=== PATIENT | female | born 1960 | race Two or more races ===

== ENCOUNTER 2016-11-21 22:49 | Emergency (ER) | payer MEDICAID ==
[2016-11-22] MEDS ORDERED: LORAZEPAM INJ 2 MG/1 ML VIAL IV ONE (00:01)
--- NOTE | 2016-11-22 00:05 | ER Document Report ---
ED General - General Chief Complaint: Palpitations Stated Complaint: PALPITATIONS Notes: Patient is a 56-year-old female who presents with complaint of popped patient's , tremors, feeling very anxious. All history is obtained using the [employer] bartender manager. Tail Board Man ID number is [id number]. Patient says that she was recent start on prednisone and lithium. She says she started prednisone because she has a history of recurrent pain goes down her left arm and left leg. This is been ongoing since 2010. She has had physical therapy and multiple different treatment regimens to try to control her pain. She says all of work. Patient also mentions that her son is now out of town. She says that in 2012 show the exact same symptoms that she had today where she started feeling her heart was racing, she felt very anxious, and she also had a possible seizure. Patient says she remembered the seizure. She says she was awake for some of it and asleep for several. She saw neurologist who initially placed on medications but then took her off the medications after one year. She says previously this episode was related to the prednisone which she was placed on at that time. She says this is the first time she's had prednisone since that episode and she started to have the same symptoms. She says that she 's been so depressed and anxious recently that she has had difficulty walking and has fallen. She says it's made her feel weak. She denies any recent fevers or infections. No vomiting. Her only other medical allergies are aspirin and penicillin. No other complaints at this time. TRAVEL OUTSIDE OF THE [place] IN LAST 30 DAYS: No - Related Data Allergies/Adverse Reactions: lactose Adverse Reaction (Intermediate, Verified 09/29/12 12:00) aspirin [Aspirin] Adverse Reaction (Verified 09/29/12 12:00) Penicillins Adverse Reaction (Verified 09/29/12 12:00) Past Medical History - Social History Smoking Status: Never Smoker Frequency of alcohol use: None Drug Abuse: None Family History: Reviewed & Not Pertinent Patient has suicidal ideation: No Patient has homicidal ideation: No - Past Medical History Cardiac Medical History: Reports: Hx Hypertension Pulmonary Medical History: Reports: Hx Asthma, Hx Bronchitis Denies: Hx Tuberculosis Neurological Medical History: Reports: Hx Seizures Renal/ Medical History: Denies: Hx Peritoneal Dialysis GI Medical History: Reports: Hx Gastroesophageal Reflux Disease Musculoskeltal Medical History: Reports Hx Arthritis Psychiatric Medical History: Reports: Hx Bipolar Disorder Denies: Hx Depression, Hx Post Traumatic Stress Disorder, Hx Schizophrenia Past Surgical History: Reports: Hx Hysterectomy, Hx Inguinal Hernia. Denies: Hx Pacemaker - Immunizations Hx Diphtheria, Pertussis, Tetanus Vaccination: Yes - unknown Hx Pneumococcal Vaccination: 09/17/12 Review of Systems - Review of Systems Notes: My Normal Review Basic REVIEW OF SYSTEMS: CONSTITUTIONAL : Denies fever, chills, or sweats. Denies recent illness. Cardiac: Palpitations EENT: Denies eye, ear, throat, or mouth pain or symptoms. Denies nasal or sinus congestion. RESPIRATORY: Denies cough, cold, or chest congestion. Denies shortness of breath, difficulty breathing, or wheezing. GASTROINTESTINAL: Denies abdominal pain. Denies nausea, vomiting, or diarrhea. Denies constipation. Last BM: MUSCULOSKELETAL: Denies neck or back pain or joint pain or swelling. SKIN: Denies rash or skin lesions. NEUROLOGICAL: Denies altered mental status or loss of consciousness. Denies headache. Denies weakness or paralysis or loss of use of either side. Denies problems with gait or speech. Denies sensory or motor loss. PSYCHIATRIC: Anxiety. Bipolar depression. ALL OTHER SYSTEMS REVIEWED AND NEGATIVE. Physical Exam - Vital signs Vitals: Temp Pulse Resp BP Pulse Ox 97.5 F 114 H 18 173/84 H 99 11/21/16 22:55 11/21/16 22:55 11/21/16 22:55 11/21/16 22:55 11/21/16 22:55 - Notes Notes: General Appearance: Well nourished, alert, cooperative, no acute distress, no obvious discomfort. Very anxious on exam. Vitals: reviewed, See vital signs table. Head: no swelling or tenderness to the head Eyes: PERRL, EOMI, Conjuctiva clear Mouth: No decreasd moisture Throat: No tonsillar inflammation, No airway obstruction, No lymphadenopathy Neck: Supple, no neck tenderness, No thyromegaly Lungs: No wheezing, No rales, No rhonci, No accessory muscle use, good air exchange bilaterally. Heart: Tachycardic rate, Regular rythm, No murmur, no rub Abdomen: Normal BS, soft, No rigidity, No abdominal tenderness, No guarding, no rebound, no abdominal masses, no organomegaly Extremities: strength 5/5 in all extremities, good pulses in all extremities, no swelling or tenderness in the extremities, no edema. Good strength in both lower extremities with plantar and dorsiflexion. Patient is equal and normal director script strength in bilateral hands. Good distal sensation. Patient is able to lift her legs off the bed and rotated around in the bed without any difficulty. Skin: warm, dry, appropriate color, no rash Neuro: speech clear, oriented x 3, normal affect, responds appropriately to questions. Distal sensation intact. Cranial nerves II through XII are intact. Course - Re-evaluation Re-evalutation: 11/22/16 02:38 On reevaluation the patient is resting comfortably. I was able to wake her up and she looks well. She still sleepy from the Ativan. I will let her rest more. Her heart rate is in the 80s. She is no longer anxious appearing. - Vital Signs Vital signs: Temp Pulse Resp BP Pulse Ox 97.5 F 114 H 14 128/72 H 95 11/21/16 22:55 11/21/16 22:55 11/22/16 06:01 11/22/16 06:01 11/22/16 06:01 - Laboratory Result Diagrams: 11/22/16 00:11 11/22/16 00:11 Laboratory results interpreted by me: 11/22/16 11/22/16 11/22/16 00:11 00:11 00:11 RDW 14.4 H Plt Count 468 H BUN 21 H Glucose 144 H Alkaline Phosphatase 127 H Urine Blood SMALL H Ur Leukocyte Esterase TRACE H Salicylates < 1.0 L Acetaminophen < 10 L [place] 0.3 L - EKG Interpretation by Me Additional EKG results interpreted by me: 11/22/16 00:12 EKGs reviewed and interpreted by me. EKG shows normal sinus rhythm with rate of [address] segment elevation or depression. Ischemic to inversions. MN interval, QRS duration, QTC intervals are within normal range. Old EKG for comparison is from 02/28/2016. - Transfer of Care Notes: 11/22/16 06:56 Did sleep most the night. She is awake and alert and walking around and looks well. She's no longer anxious appearing. She's no longer tachycardic. I did go over her laboratory results and the plan using the [employer] cardiovascular physician assistant services , cardiovascular physician assistant ID #[id number]. It appears that she's had a similar reaction when receiving prednisone in the past. She is to make her go into almost a panic attack. Her symptoms were completely resolved with Ativan. She said that she would follow up with Dr. Means today or tomorrow. I told her to bring her discharge instructions to her appointment. I did write in her discharge instructions my impression so she could show this to Dr. Means. Patient is appreciative of this. I encouraged return to ER she has recurrence of her symptoms or feels unwell. Patient agrees with plan will be discharged home. Dictation of this chart was performed using voice recognition software; therefore, there may be some unintended grammatical errors. Discharge - Discharge Clinical Impression: Anxiety, Medication reaction Condition: Good Disposition: HOME, SELF-CARE Additional Instructions: Please follow-up with Dr. Means today. Please inform Dr. Means that prednisone causes you to feel very anxious and makes your heart rate race. This has happened to you in the past when you have taken prednisone. You should avoid prednisone. We did do blood work. Your CBC is normal. Your chemistry panel was normal. There is no evidence of infection. After we gave you Ativan your symptoms completely resolved and you have been well since. Please return to ER immediately if you have recurrence of your symptoms, feel anxious, have a fast heart rate, or if you have any further concerns.
[2016-11-22 00:44] LABS: ABSOLUTE LYMPHOCYTES (AUTO) 2.3 10^3/uL (0.5-4.7); ABSOLUTE MONOCYTES (AUTO) 0.7 10^3/uL (0.1-1.4); ABSOLUTE NEUT (AUTO) 7.2 10^3/uL (1.7-8.2); BASOPHILS % (AUTO) 0.3 % (0-2); EOSINOPHILS % (AUTO) 0.5 % (0-6); HEMATOCRIT 38.6 % (36.0-47.0); HEMOGLOBIN 13.2 g/dL (12.0-15.5); LYMPHOCYTES % (AUTO) 22.7 % (13-45); MEAN CORPUSCULAR HEMOGLOBIN 27.7 pg (27.0-33.4); MEAN CORPUSCULAR HGB CONC 34.1 g/dL (32.0-36.0); MEAN CORPUSCULAR VOLUME 82 fl (80-97); RED BLOOD COUNT 4.74 10^6/uL (3.72-5.28); RED CELL DISTRIBUTION WIDTH 14.4 % (11.5-14.0); SEGMENTED NEUTROPHILS % (AUTO) 69.5 % (42-78); WHITE BLOOD COUNT 10.4 10^3/uL (4.0-10.5)
[2016-11-22 00:48] LABS: APPEARANCE,URINE CLEAR; BILIRUBIN,URINE NEGATIVE (NEGATIVE); GLUCOSE, URINE NEGATIVE (NEGATIVE); KETONES,URINE NEGATIVE (NEGATIVE); LEUKOCYTE ESTERASE,URINE TRACE (NEGATIVE); NITRITE,URINE NEGATIVE (NEGATIVE); PROTEIN,URINE NEGATIVE (NEGATIVE); URINE SPECIFIC GRAVITY 1.027; UROBILINOGEN,URINE NEGATIVE mg/dL (<2.0)
[2016-11-22 01:07] LABS: ALANINE AMINOTRANSFERASE 28 U/L (9-52); ALBUMIN 4.4 g/dL (3.5-5.0); ALKALINE PHOSPHATASE 127 U/L (38-126); ANION GAP 14 (5-19); ASPARTATE AMINO TRANSFERASE 31 U/L (14-36); BILIRUBIN,TOTAL 0.6 mg/dL (0.2-1.3); BLOOD UREA NITROGEN 21 mg/dL (7-20); CALCIUM 10.1 mg/dL (8.4-10.2); CARBON DIOXIDE 28 mmol/L (22-30); CHLORIDE 101 mmol/L (98-107); CREATININE RESULT 0.68 mg/dL (0.52-1.25); GLUCOSE 144 mg/dL (75-110); LITHIUM 0.3 mEq/L (0.6-1.2); POTASSIUM 4.4 mmol/L (3.6-5.0); SODIUM 143.1 mmol/L (137-145); TOTAL PROTEIN 7.9 g/dL (6.3-8.2)
[2016-11-22 01:16] LABS: ALCOHOL < 10 mg/dL (NONE DETECTED)
[2016-11-22 01:40] LABS: URINE BARBITURATES SCREEN NEGATIVE; URINE METHADONE SCREEN NEGATIVE; URINE OPIATES LOW NEGATIVE; URINE PHENCYCLIDINE SCREEN NEGATIVE
[2016-11-22 06:26] VITALS: BP 128/72
--- NOTE | 2016-11-22 09:24 | EKG REPORT ---
SEVERITY:- NORMAL ECG - SINUS RHYTHM : Confirmed by: Enriqeu Mckeon 22-Nov-2016 09:23:45
== END 2016-11-22 06:50 | disposition home or self-care (01) ==
LOC: ER 22:49
DX: F41.9 Anxiety disorder, unspecified (principal); T38.0X5A Adverse effect of glucocorticoids and synthetic analogues, initial encounter; R00.0 Tachycardia, unspecified; R00.2 Palpitations; R25.1 Tremor, unspecified; M79.602 Pain in left arm; M79.605 Pain in left leg; J45.909 Unspecified asthma, uncomplicated; R53.1 Weakness; R26.2 Difficulty in walking, not elsewhere classified; Z91.81 History of falling; Z88.6 Allergy status to analgesic agent; Z88.0 Allergy status to penicillin; I10 Essential (primary) hypertension; F31.9 Bipolar disorder, unspecified
CPT/HCPCS: 93005; 99285; 96374; 36415; 80307 ×4; 80178; 85025; 80053; 81001; 93010; J2060

== ENCOUNTER 2016-11-25 05:28 | Emergency (ER) | payer MEDICAID ==
[2016-11-25] MEDS ORDERED: PROCHLORPERAZINE EDISYLATE INJ 10 MG/2 ML VIAL IV ONE (06:06)
[2016-11-25] MEDS ORDERED: DIPHENHYDRAMINE HCL 50 MG/ML VIAL IV ONE (06:06)
--- NOTE | 2016-11-25 07:12 | ER Document Report ---
ED General - General Chief Complaint: Headache Stated Complaint: SEVERE HEADACHE Mode of Arrival: Ambulatory Information source: Patient Notes: 56-year-old female history of anxiety headaches presents with complaints of a headache that is similar to her previous headaches. Patient also notes that she has dry mouth dry tongue. Denies any neurological deficits. Patient notes headaches been ongoing for a few days TRAVEL OUTSIDE OF THE [place] IN LAST 30 DAYS: No - HPI Onset: Other Onset/Duration: Persistent Quality of pain: Achy Severity: Mild Pain Level: 2 Associated symptoms: Headache Exacerbated by: Denies Relieved by: Denies Similar symptoms previously: Yes Recently seen / treated by doctor: Yes - Related Data Allergies/Adverse Reactions: lactose Adverse Reaction (Intermediate, Verified 11/22/16 06:55) prednisone Adverse Reaction (Intermediate, Verified 11/22/16 06:55) Anxiety aspirin [Aspirin] Adverse Reaction (Verified 11/22/16 06:55) Penicillins Adverse Reaction (Verified 11/22/16 06:55) Past Medical History - Social History Smoking Status: Never Smoker Cigarette use (# per day): No Chew tobacco use (# tins/day): No Smoking Education Provided: No Frequency of alcohol use: None Drug Abuse: None Family History: Reviewed & Not Pertinent Patient has suicidal ideation: No Patient has homicidal ideation: No - Past Medical History Cardiac Medical History: Reports: Hx Hypertension Pulmonary Medical History: Reports: Hx Asthma, Hx Bronchitis Denies: Hx Tuberculosis Neurological Medical History: Reports: Hx Seizures Renal/ Medical History: Denies: Hx Peritoneal Dialysis GI Medical History: Reports: Hx Gastroesophageal Reflux Disease Musculoskeltal Medical History: Reports Hx Arthritis Psychiatric Medical History: Reports: Hx Bipolar Disorder Denies: Hx Depression, Hx Post Traumatic Stress Disorder, Hx Schizophrenia Past Surgical History: Reports: Hx Hysterectomy, Hx Inguinal Hernia. Denies: Hx Pacemaker - Immunizations Hx Diphtheria, Pertussis, Tetanus Vaccination: Yes - unknown Hx Pneumococcal Vaccination: 09/17/12 Review of Systems - Review of Systems Notes: REVIEW OF SYSTEMS: CONSTITUTIONAL : Denies fever, chills, or sweats. Denies recent illness. EENT: Denies eye, ear, throat, or mouth pain or symptoms. Denies nasal or sinus congestion or discharge. Denies throat, tongue, or mouth swelling or difficulty swallowing. CARDIOVASCULAR: Denies chest pain. Denies palpitations or racing or irregular heart beat. Denies ankle edema. RESPIRATORY: Denies cough, cold, or chest congestion. Denies shortness of breath, difficulty breathing, or wheezing. GASTROINTESTINAL: Denies abdominal pain or distention. Denies nausea, vomiting , or diarrhea. Denies blood in vomitus, stools, or per rectum. Denies black, tarry stools. Denies constipation. GENITOURINARY: Denies difficulty urinating, painful urination, burning, frequency, blood in urine, or discharge. FEMALE GENITOURINARY: Denies vaginal bleeding, heavy or abnormal periods, irregular periods. Denies vaginal discharge or odor. MUSCULOSKELETAL: Denies back or neck pain or stiffness. Denies joint pain or swelling. SKIN: Denies rash, lesions or sores. HEMATOLOGIC : Denies easy bruising or bleeding. LYMPHATIC: Denies swollen, enlarged glands. NEUROLOGICAL: admits ot headache PSYCHIATRIC: Denies anxiety or stress. Denies depression, suicidal ideation, or homicidal ideation. ALL OTHER SYSTEMS REVIEWED AND NEGATIVE. Dictation was performed using [employer] voice recognition software PHYSICAL EXAMINATION: GENERAL: Well-appearing, well-nourished and in no acute distress. HEAD: Atraumatic, normocephalic. EYES: Pupils equal round and reactive to light, extraocular movements intact, conjunctiva are normal. ENT: Nares patent, oropharynx clear without exudates. Moist mucous membranes. NECK: Normal range of motion, supple without lymphadenopathy LUNGS: Breath sounds clear to auscultation bilaterally and equal. No wheezes rales or rhonchi. HEART: Regular rate and rhythm without murmurs ABDOMEN: Soft, nontender, nondistended abdomen. No guarding, no rebound. No masses appreciated. Female : deferred Musculoskeletal: Normal range of motion, no pitting or edema. No cyanosis. NEUROLOGICAL: Cranial nerves grossly intact. Normal speech, normal gait. Normal sensory, motor exams PSYCH: Normal mood, normal affect. SKIN: Warm, Dry, normal turgor, no rashes or lesions noted. Physical Exam - Vital signs Vitals: Temp Pulse Resp BP Pulse Ox 97.4 F 103 H 20 163/93 H 100 11/25/16 05:34 11/25/16 05:34 11/25/16 05:34 11/25/16 05:34 11/25/16 05:34 Course - Re-evaluation Re-evalutation: 11/25/16 07:34 pts neuro exam is normal, ct head was negative, pt notes complete relief of her symptoms . pt offered lp and defers After performing a Medical Screening Examination, I estimate there is LOW risk for ACUTE GLAUCOMA, TEMPORAL ARTERITIS, MENINGITIS, INCRANIAL HEMORRHAGE, or ISCHEMIC STROKE thus I consider the discharge disposition reasonable. The patient and I have discussed the diagnosis and risks, and we agree with discharging home with close follow-up with the understanding that symptoms and presentations can change. We also discussed returning to the Emergency Department immediately if new or worsening symptoms occur. We have discussed the symptoms which are most concerning (e.g., changing or worsening symptoms, new numbness or weakness, vomiting, fever) that necessitate immediate return. - Vital Signs Vital signs: Temp Pulse Resp BP Pulse Ox 97.4 F 109 H 20 163/93 H 100 11/25/16 05:35 11/25/16 05:35 11/25/16 05:35 11/25/16 05:35 11/25/16 05:35 - Diagnostic Test Radiology reviewed: Image reviewed, Reports reviewed - report given to patient Discharge - Discharge Clinical Impression: Anxiety, Dry mouth Headache Qualifiers: Headache type: unspecified Headache chronicity pattern: acute headache Intractability: intractable Qualified Code(s): R51 - Headache Condition: Stable Disposition: HOME, SELF-CARE Instructions: Headache ([facility]) Referrals: KYLAH MANTILLA MD [Primary Care Provider] - Follow up tomorrow
[2016-11-25 08:13] VITALS: BP 159/93
== END 2016-11-25 08:14 | disposition home or self-care (01) ==
LOC: ER 05:28
DX: R51 Headache (principal); F41.9 Anxiety disorder, unspecified; R68.2 Dry mouth, unspecified; I10 Essential (primary) hypertension; J45.909 Unspecified asthma, uncomplicated
CPT/HCPCS: 99284; 96374; 96375; 70450; J1200; J0780

== ENCOUNTER 2016-12-01 00:37 | Emergency (ER) | payer MEDICAID, OTHER ==
[2016-12-01] MEDS ORDERED: PROCHLORPERAZINE EDISYLATE INJ 10 MG/2 ML VIAL IV ONE (01:53)
[2016-12-01] MEDS ORDERED: METHOCARBAMOL INJ/PF 1000 MG/10 ML SDV IV ONE (01:53)
[2016-12-01] MEDS ORDERED: DIPHENHYDRAMINE HCL 50 MG/ML VIAL IV ONE (01:53)
--- NOTE | 2016-12-01 02:00 | ER Document Report ---
ED General - General Chief Complaint: High Blood Pressure Stated Complaint: GENERAL WEAKNESS Time seen by provider: 01:50 Notes: Patient is a 56-year-old female that comes emergency department for chief complaint of high blood pressure, headache, pain on the sides of her neck, feeling unsteady on her feet, and feeling tired. States she has intermittently not felt well for about one week. She states that she saw her psychiatrist, they increased her antidepressant, she felt worse, she went back and they changed again. So had a CAT scan of the head within the past week which was normal reportedly. Patient denies any focal numbness or weakness, he states that only the back of her head has pain. She denies any fever but states she was feeling chills earlier today. Patient speaks Moldovan, her daughter is here with her, patient declines an supervisor fleshing and requests her daughter to interpret for her. TRAVEL OUTSIDE OF THE [place] IN LAST 30 DAYS: No - Related Data Allergies/Adverse Reactions: lactose Adverse Reaction (Intermediate, Verified 11/22/16 06:55) prednisone Adverse Reaction (Intermediate, Verified 11/22/16 06:55) Anxiety aspirin [Aspirin] Adverse Reaction (Verified 11/22/16 06:55) Penicillins Adverse Reaction (Verified 11/22/16 06:55) Past Medical History - General Information source: Patient - Social History Smoking Status: Never Smoker Frequency of alcohol use: None Drug Abuse: None Lives with: Family Family History: Reviewed & Not Pertinent Patient has suicidal ideation: No Patient has homicidal ideation: No - Past Medical History Cardiac Medical History: Reports: Hx Hypertension Pulmonary Medical History: Reports: Hx Asthma, Hx Bronchitis Denies: Hx Tuberculosis Neurological Medical History: Reports: Hx Seizures Renal/ Medical History: Denies: Hx Peritoneal Dialysis GI Medical History: Reports: Hx Gastroesophageal Reflux Disease Musculoskeltal Medical History: Reports Hx Arthritis Psychiatric Medical History: Reports: Hx Bipolar Disorder Denies: Hx Depression, Hx Post Traumatic Stress Disorder, Hx Schizophrenia Past Surgical History: Reports: Hx Hysterectomy, Hx Inguinal Hernia. Denies: Hx Pacemaker - Immunizations Hx Diphtheria, Pertussis, Tetanus Vaccination: Yes - unknown Hx Pneumococcal Vaccination: 09/17/12 Review of Systems - Review of Systems Constitutional: See HPI EENT: No symptoms reported Cardiovascular: See HPI Respiratory: No symptoms reported Gastrointestinal: No symptoms reported Genitourinary: No symptoms reported Female Genitourinary: No symptoms reported Musculoskeletal: See HPI Skin: No symptoms reported Hematologic/Lymphatic: No symptoms reported Neurological/Psychological: See HPI Physical Exam - Vital signs Vitals: Temp Pulse Resp BP Pulse Ox 98.1 F 95 18 136/73 H 97 12/01/16 00:46 12/01/16 00:46 12/01/16 00:46 12/01/16 00:46 12/01/16 00:46 Interpretation: Normal - General General appearance: Anxious In distress: None - patient speaks quickly and nervously, but no distress noted - HEENT Head: Normocephalic, Atraumatic Eyes: Normal Conjunctiva: Normal Extraocular movements intact: Yes Eyelashes: Normal Pupils: PERRL Sinus: Normal Nasal: Normal Mouth/Lips: Normal Mucous membranes: Dry Pharynx: Normal Neck: Normal. No: Anterior cervical chain, Posterior cervical chain, Lymphadenopathy, Meningismus - Respiratory Respiratory status: No respiratory distress Chest status: Nontender Breath sounds: Normal Chest palpation: Normal - Cardiovascular Rhythm: Regular. No: Tachycardia Heart sounds: Normal auscultation, S1 appreciated, S2 appreciated Murmur: No - Abdominal Inspection: Normal Distension: No distension Bowel sounds: Normal Tenderness: Nontender. No: Tender, Guarding Organomegaly: No organomegaly - Back Back: Normal, Nontender. No: Tender - Extremities General upper extremity: Normal inspection, Nontender, Normal color, Normal ROM , Normal temperature General lower extremity: Normal inspection, Nontender, Normal color, Normal ROM , Normal temperature, Normal weight bearing. No: Luci's sign - Neurological Neuro grossly intact: Yes Cognition: Normal Orientation: AAOx4 Cindy Coma Scale Eye Opening: Spontaneous [place] Coma Scale Verbal: Oriented [place] Coma Scale Motor: Obeys Commands [place] Coma Scale Total: 15 Speech: Normal Cranial nerves: Normal Cerebellar coordination: Normal Motor strength normal: LUE, RUE, LLE, RLE Additional motor exam normals: Equal supervisor soakers Sensory: Normal - Psychological Associated symptoms: Anxious - Skin Skin Temperature: Warm Skin Moisture: Dry Skin Color: Normal Course - Re-evaluation Re-evalutation: Patient initially with tenderness over the paracervical muscles and complaining of a posterior headache, deficits, I ambulated patient around the room and she has no unsteadiness, patient is generally well-appearing. After treatment for headache symptoms completely resolved, patient sleeping soundly, no complaints after awakened, continues to ambulate without difficulty. Afebrile. CBC shows mild leukocytosis with elevation of eosinophils, nonspecific, unremarkable mucous membrane evaluation on exam, soft abdomen with no abdominal complaints. Urinalysis shows elevated specific gravity consistent with dehydration, patient was given IV fluids, patient will also be treated for leukocytes in the urine after discussion with patient and daughter (patient reports that she gets frequent infections and if she has white blood cells in her urine she wants to be started on something now). - Vital Signs Vital signs: Temp Pulse Resp BP Pulse Ox 97.6 F 80 16 146/76 H 100 12/01/16 05:48 12/01/16 05:48 12/01/16 05:48 12/01/16 05:48 12/01/16 05:48 - Laboratory Result Diagrams: 12/01/16 02:06 12/01/16 02:06 Laboratory results interpreted by me: 12/01/16 12/01/16 12/01/16 02:06 02:06 02:06 WBC 11.6 H Hgb 11.3 L Hct 33.9 L RDW 14.7 H Eosinophils % 10.8 H Absolute Eosinophils 1.2 H BUN 22 H Urine Ketones TRACE H Ur Leukocyte Esterase MODERATE H Urine Ascorbic Acid 40 H Discharge - Discharge Clinical Impression: Lightheadedness, Anxiety, Elevated blood pressure reading Headache Qualifiers: Headache type: unspecified Headache chronicity pattern: acute headache Intractability: not intractable Qualified Code(s): R51 - Headache Condition: Stable Disposition: HOME, SELF-CARE Additional Instructions: Examination is consistent with a tension headache. Apply heat to your neck/shoulders, perform gentle stretches, consider massage of the muscles, take Fioricet if needed for headache pain. Stay better hydrated to avoid feeling lightheaded, take the antibiotic to treat developing urinary tract infection. Follow up routinely with your provider as planned for continued treatment of your blood pressure. Return to the emergency department for any concerning symptoms including returned or severe headache, chest pain, fever, or any other concerning symptoms. Prescriptions: Butalb/Acetaminophen/Caffeine [Fioricet (50-325-40 mg) Tablet] 1 tab PO Q4HP PRN #30 tab PRN Reason: Ciprofloxacin HCl [Cipro 500 mg Tablet] 500 mg PO BID #10 tablet Forms: Treatment of Relative/Child Referrals: KYLAH MANTILLA MD [Primary Care Provider] - Follow up as needed
[2016-12-01 02:23] LABS: ABSOLUTE BASOPHILS # (AUTO) 0.1 10^3/uL (0.0-0.2); ABSOLUTE EOSINOPHILS # (AUTO) 1.2 10^3/uL (0.0-0.6); ABSOLUTE MONOCYTES (AUTO) 0.8 10^3/uL (0.1-1.4); ABSOLUTE NEUT (AUTO) 6.3 10^3/uL (1.7-8.2); BASOPHILS % (AUTO) 0.6 % (0-2); EOSINOPHILS % (AUTO) 10.8 % (0-6); HEMATOCRIT 33.9 % (36.0-47.0); HEMOGLOBIN 11.3 g/dL (12.0-15.5); LYMPHOCYTES % (AUTO) 26.4 % (13-45); MEAN CORPUSCULAR HEMOGLOBIN 27.3 pg (27.0-33.4); MEAN CORPUSCULAR HGB CONC 33.3 g/dL (32.0-36.0); MEAN CORPUSCULAR VOLUME 82 fl (80-97); MONOCYTES % (AUTO) 7.3 % (3-13); RED BLOOD COUNT 4.14 10^6/uL (3.72-5.28); RED CELL DISTRIBUTION WIDTH 14.7 % (11.5-14.0); SEGMENTED NEUTROPHILS % (AUTO) 54.9 % (42-78); WHITE BLOOD COUNT 11.6 10^3/uL (4.0-10.5)
[2016-12-01 02:40] LABS: ANION GAP 8 (5-19); BLOOD UREA NITROGEN 22 mg/dL (7-20); CALCIUM 9.7 mg/dL (8.4-10.2); CARBON DIOXIDE 29 mmol/L (22-30); CHLORIDE 103 mmol/L (98-107); CREATININE RESULT 0.74 mg/dL (0.52-1.25); GLUCOSE 106 mg/dL (75-110); POTASSIUM 4.5 mmol/L (3.6-5.0); SODIUM 139.5 mmol/L (137-145)
[2016-12-01 02:45] LABS: APPEARANCE,URINE TURBID; BILIRUBIN,URINE NEGATIVE (NEGATIVE); GLUCOSE, URINE NEGATIVE (NEGATIVE); KETONES,URINE TRACE mg/dL (NEGATIVE); LEUKOCYTE ESTERASE,URINE MODERATE (NEGATIVE); NITRITE,URINE NEGATIVE (NEGATIVE); PROTEIN,URINE NEGATIVE (NEGATIVE); UROBILINOGEN,URINE NEGATIVE mg/dL (<2.0)
[2016-12-01] MEDS ORDERED: NORMAL SALINE 1000 ML 1,000 ML IV ONE (02:54)
[2016-12-01] MEDS ORDERED: NORMAL SALINE 1000 ML 500 ML IV ONE (03:00)
[2016-12-01] MEDS ORDERED: CIPROFLOXACIN HCL 500 MG TABLET PO ONE (05:14)
[2016-12-01 05:52] VITALS: BP 146/76
--- NOTE | 2016-12-01 08:22 | EKG REPORT ---
SEVERITY:- NORMAL ECG - SINUS RHYTHM : Confirmed by: Stevan Garay MD 01-Dec-2016 08:21:44
== END 2016-12-01 05:48 | disposition home or self-care (01) ==
LOC: ER 00:37
DX: I10 Essential (primary) hypertension (principal); R51 Headache; F41.9 Anxiety disorder, unspecified; R53.1 Weakness; R42 Dizziness and giddiness; M54.2 Cervicalgia; R53.83 Other fatigue; D72.1 Eosinophilia; J45.909 Unspecified asthma, uncomplicated; F31.9 Bipolar disorder, unspecified; Z79.899 Other long term (current) drug therapy
CPT/HCPCS: 93005; 36415; 85025; 80048; 81001; 93010; J3490; J1200; J2800; J0780; J7030

== ENCOUNTER → 2016-12-28 | Outpatient (CLI) | payer OTHER ==
[2016-12-28 09:29] LABS: HEMATOCRIT 34.6 % (36.0-47.0); HEMOGLOBIN 11.5 g/dL (12.0-15.5); HGB HCT DIFFERENCE -0.1; MEAN CORPUSCULAR HEMOGLOBIN 27.6 pg (27.0-33.4); MEAN CORPUSCULAR HGB CONC 33.4 g/dL (32.0-36.0); MEAN CORPUSCULAR VOLUME 83 fl (80-97); RED BLOOD COUNT 4.18 10^6/uL (3.72-5.28); RED CELL DISTRIBUTION WIDTH 14.8 % (11.5-14.0); WHITE BLOOD COUNT 7.7 10^3/uL (4.0-10.5)
[2016-12-28 10:14] LABS: BLOOD UREA NITROGEN 15 mg/dL (7-20); CALCIUM 9.9 mg/dL (8.4-10.2); CREATININE RESULT 0.62 mg/dL (0.52-1.25); GLUCOSE 102 mg/dL (75-110)
[2016-12-28 10:15] LABS: ANION GAP 9 (5-19); CARBON DIOXIDE 29 mmol/L (22-30); CHLORIDE 105 mmol/L (98-107); LITHIUM 0.4 mEq/L (0.6-1.2); POTASSIUM 4.7 mmol/L (3.6-5.0); SODIUM 143.3 mmol/L (137-145)
[2016-12-28 10:20] LABS: THYROID STIMULATING HORMONE 0.98 uIU/mL (0.47-4.68)
== END ==
LOC: OD 08:29
PROVIDERS: ATTEND Psychiatry & Neurology Psychiatry
DX: F31.31 Bipolar disorder, current episode depressed, mild (principal); Z79.899 Other long term (current) drug therapy
CPT/HCPCS: 36415; 80048; 80178; 84439; 84443; 85027

== ENCOUNTER → 2017-06-12 | Outpatient (CLI) | payer MEDICAID ==
[2017-06-12 09:57] LABS: HEMATOCRIT 37.7 % (36.0-47.0); HEMOGLOBIN 12.8 g/dL (12.0-15.5); HGB HCT DIFFERENCE 0.7; MEAN CORPUSCULAR HEMOGLOBIN 28.6 pg (27.0-33.4); MEAN CORPUSCULAR HGB CONC 34.1 g/dL (32.0-36.0); MEAN CORPUSCULAR VOLUME 84 fl (80-97); RED BLOOD COUNT 4.49 10^6/uL (3.72-5.28); RED CELL DISTRIBUTION WIDTH 14.7 % (11.5-14.0)
[2017-06-12 10:17] LABS: ANION GAP 11 (5-19); BLOOD UREA NITROGEN 11 mg/dL (7-20); CALCIUM 10.1 mg/dL (8.4-10.2); CARBON DIOXIDE 28 mmol/L (22-30); CHLORIDE 102 mmol/L (98-107); CREATININE RESULT 0.68 mg/dL (0.52-1.25); GLUCOSE 100 mg/dL (75-110); LITHIUM 0.5 mEq/L (0.6-1.2); POTASSIUM 4.5 mmol/L (3.6-5.0); SODIUM 141.2 mmol/L (137-145)
[2017-06-12 10:55] LABS: THYROID STIMULATING HORMONE 1.11 uIU/mL (0.47-4.68)
== END ==
LOC: OD 08:37
PROVIDERS: ATTEND Psychiatry & Neurology Psychiatry
DX: F31.31 Bipolar disorder, current episode depressed, mild (principal)
CPT/HCPCS: 36415; 80048; 80178; 84439; 84443; 85027

== ENCOUNTER 2017-09-20 23:37 | Inpatient (IN) | payer MEDICAID ==
[2017-09-20] MEDS ORDERED: NORMAL SALINE 1000 ML 1,000 ML IV ONE (23:58)
[2017-09-20] MEDS ORDERED: HYDROMORPHONE HCL INJ/PF 2 MG/ML AMPULE IV ONE (23:58)
--- NOTE | 2017-09-21 00:03 | ER Document Report ---
ED General - General Chief Complaint: Headache Stated Complaint: HEADACHE Time Seen by Provider: 09/20/17 23:50 Notes: Patient is a 57-year-old female presents with complaint of kidney infection and headache. Patient says her kidney infection started earlier in the week. Her headache started about 3 days ago. Patient says that she first her having pain in the left kidney with burning with urination. She saw was placed on nitrofurantoin. She did not start develop headache. She said tonight she was having more burning when she urinated started to feel chills felt as if she had a fever. She took medication to help with her fever and called the ambulance. When EMS arrived her temp was down to 98.6. She is tachycardic. Patient says she does have history of headaches. She has had several headaches in the past. She says they seem to come whenever her body is stressed with something. They do feel similar to her previous headaches. Headache this morning right side of her head and going to the back of her head. No vomiting. She has had some nausea. No diarrhea. Patient's primary language is Turkish however she does understand Haitian well and speak Haitian fairly well. I still had Karrie Turkish speaking nurse, at bedside to help translate. TRAVEL OUTSIDE OF THE [place] IN LAST 30 DAYS: No - Related Data Allergies/Adverse Reactions: lactose Adverse Reaction (Intermediate, Verified 11/22/16 06:55) prednisone Adverse Reaction (Intermediate, Verified 11/22/16 06:55) Anxiety aspirin [Aspirin] Adverse Reaction (Verified 11/22/16 06:55) Penicillins Adverse Reaction (Verified 11/22/16 06:55) Past Medical History - Social History Smoking Status: Unknown if Ever Smoked Frequency of alcohol use: None Drug Abuse: None Family History: Reviewed & Not Pertinent Patient has suicidal ideation: No Patient has homicidal ideation: No - Past Medical History Cardiac Medical History: Reports: Hx Hypertension Pulmonary Medical History: Reports: Hx Asthma, Hx Bronchitis Denies: Hx Tuberculosis Neurological Medical History: Reports: Hx Seizures Renal/ Medical History: Denies: Hx Peritoneal Dialysis GI Medical History: Reports: Hx Gastroesophageal Reflux Disease Musculoskeltal Medical History: Reports Hx Arthritis Psychiatric Medical History: Reports: Hx Bipolar Disorder Denies: Hx Depression, Hx Post Traumatic Stress Disorder, Hx Schizophrenia Past Surgical History: Reports: Hx Hysterectomy, Hx Inguinal Hernia. Denies: Hx Pacemaker - Immunizations Hx Diphtheria, Pertussis, Tetanus Vaccination: Yes - unknown Hx Pneumococcal Vaccination: 09/17/12 Review of Systems - Review of Systems Notes: My Normal Review Basic REVIEW OF SYSTEMS: CONSTITUTIONAL : Fever EENT: Denies eye, ear, throat, or mouth pain or symptoms. Denies nasal or sinus congestion. CARDIOVASCULAR: Denies chest pain. RESPIRATORY: Denies cough, cold, or chest congestion. Denies shortness of breath, difficulty breathing, or wheezing. GASTROINTESTINAL: Denies abdominal pain. Denies nausea, vomiting, or diarrhea. Denies constipation. Last BM: GENITOURINARY: Dysuria MUSCULOSKELETAL: Left low back pain SKIN: Denies rash or skin lesions. NEUROLOGICAL: Denies altered mental status or loss of consciousness. Denies headache. Denies weakness or paralysis or loss of use of either side. Denies problems with gait or speech. Denies sensory or motor loss. ALL OTHER SYSTEMS REVIEWED AND NEGATIVE. Physical Exam - Vital signs Vitals: Temp Pulse Resp BP Pulse Ox 99.7 F 117 H 18 145/83 H 100 09/20/17 23:47 09/20/17 23:47 09/20/17 23:47 09/20/17 23:47 09/20/17 23:47 - Notes Notes: General Appearance: Well nourished, alert, cooperative, no acute distress, no obvious discomfort. She is mildly anxious appearing. Vitals: reviewed, See vital signs table. Head: no swelling or tenderness to the head Eyes: PERRL, EOMI, Conjuctiva clear Mouth: No decreasd moisture Throat: No tonsillar inflammation, No airway obstruction, No lymphadenopathy Lungs: No wheezing, No rales, No rhonci, No accessory muscle use, good air exchange bilaterally. Heart: Tachycardic rate, Regular rythm, No murmur, no rub Abdomen: Normal BS, soft, No rigidity, No abdominal tenderness, No guarding, no rebound, no abdominal masses, no organomegaly Back: Patient has positive Contreras's sign on the left. No pain on the right. Extremities: strength 5/5 in all extremities, good pulses in all extremities, no swelling or tenderness in the extremities, no edema. Skin: warm, dry, appropriate color, no rash Neuro: speech clear, oriented x 3, normal affect, responds appropriately to questions. Course - Re-evaluation Re-evalutation: 09/21/17 02:24 Patient's pain is resolved but she still tachycardic make me concerned that she probably does have some sepsis related to her pyelonephritis. I will obtain a renal ultrasound to make sure there is no evidence of hydronephrosis. 09/21/17 04:26 Patient continues that she was much improved from her pain. She said she still feels as if she is ill however he still wants to stay in the hospital. I think is appropriate being that even though the patient's tachycardia is not in the 120s anymore she still will bounce around between the high 90s to the 1 teens depending if she is lying completely still moving around. Her age is concerning for possible early sepsis. Her blood pressure has been normal. She is received 2 L of fluids. I spoke with the hospitalist, Dr. Ballesteros, who agrees to admit the patient. Dictation of this chart was performed using voice recognition software; therefore, there may be some unintended grammatical errors. - Vital Signs Vital signs: Temp Pulse Resp BP Pulse Ox 99.7 F 117 H 18 145/83 H 100 09/20/17 23:47 09/20/17 23:47 09/20/17 23:47 09/20/17 23:47 09/20/17 23:47 - Laboratory Result Diagrams: 09/21/17 00:12 09/21/17 00:12 Laboratory results interpreted by me: 09/20/17 09/21/17 09/21/17 23:50 00:12 00:12 WBC 17.5 H Hgb 11.4 L Hct 33.3 L RDW 14.6 H Seg Neutrophils % 85.9 H Lymphocytes % 7.6 L Absolute Neutrophils 15.0 H BUN 29 H Glucose 122 H Urine Blood SMALL H Ur Leukocyte Esterase MODERATE H [place] 0.3 L Discharge - Discharge Clinical Impression: Pyelonephritis Headache Qualifiers: Headache type: unspecified Headache chronicity pattern: acute headache Intractability: not intractable Qualified Code(s): R51 - Headache Condition: Stable Disposition: ADMITTED OBSERVATION Admitting Provider: Hospitalist Unit Admitted: Telemetry Referrals: KYLAH MANTILLA MD [Primary Care Provider] - Follow up as needed
[2017-09-21 00:19] LABS: ABSOLUTE BASOPHILS # (AUTO) 0.1 10^3/uL (0.0-0.2); ABSOLUTE EOSINOPHILS # (AUTO) 0.4 10^3/uL (0.0-0.6); ABSOLUTE LYMPHOCYTES (AUTO) 1.3 10^3/uL (0.5-4.7); ABSOLUTE MONOCYTES (AUTO) 0.6 10^3/uL (0.1-1.4); BASOPHILS % (AUTO) 0.8 % (0-2); EOSINOPHILS % (AUTO) 2.2 % (0-6); HEMATOCRIT 33.3 % (36.0-47.0); HEMOGLOBIN 11.4 g/dL (12.0-15.5); HGB HCT DIFFERENCE 0.9; LYMPHOCYTES % (AUTO) 7.6 % (13-45); MEAN CORPUSCULAR HEMOGLOBIN 28.5 pg (27.0-33.4); MEAN CORPUSCULAR HGB CONC 34.3 g/dL (32.0-36.0); MEAN CORPUSCULAR VOLUME 83 fl (80-97); MONOCYTES % (AUTO) 3.5 % (3-13); RED BLOOD COUNT 4.01 10^6/uL (3.72-5.28); RED CELL DISTRIBUTION WIDTH 14.6 % (11.5-14.0); SEGMENTED NEUTROPHILS % (AUTO) 85.9 % (42-78); WHITE BLOOD COUNT 17.5 10^3/uL (4.0-10.5)
[2017-09-21 00:38] LABS: APPEARANCE,URINE SLIGHTLY-CLOUDY; BILIRUBIN,URINE NEGATIVE (NEGATIVE); GLUCOSE, URINE NEGATIVE (NEGATIVE); KETONES,URINE NEGATIVE (NEGATIVE); LEUKOCYTE ESTERASE,URINE MODERATE (NEGATIVE); NITRITE,URINE NEGATIVE (NEGATIVE); PROTEIN,URINE NEGATIVE (NEGATIVE); URINE SPECIFIC GRAVITY 1.009; UROBILINOGEN,URINE NEGATIVE mg/dL (<2.0)
[2017-09-21 00:40] LABS: ANION GAP 12 (5-19); BLOOD UREA NITROGEN 29 mg/dL (7-20); CALCIUM 9.7 mg/dL (8.4-10.2); CARBON DIOXIDE 26 mmol/L (22-30); CHLORIDE 104 mmol/L (98-107); CREATININE RESULT 0.74 mg/dL (0.52-1.25); GLUCOSE 122 mg/dL (75-110); LITHIUM 0.3 mEq/L (0.6-1.2); SODIUM 142.4 mmol/L (137-145)
[2017-09-21] MEDS ORDERED: CEFTRIAXONE INJ 1000 MG VIAL IV ONE (00:41)
[2017-09-21] MEDS ORDERED: NORMAL SALINE 1000 ML 1,000 ML IV ONE (01:02)
[2017-09-21] MEDS ORDERED: METOCLOPRAMIDE HCL INJ/PF 10 MG/2 ML SDV IV ONE (01:19)
[2017-09-21] MEDS ORDERED: DIPHENHYDRAMINE HCL 50 MG/ML VIAL IV ONE (01:19)
--- NOTE | 2017-09-21 03:54 | RADIOLOGY REPORT (SQ) ---
EXAM DESCRIPTION: U/S RETROPERITON (RENAL/AORTA) COMPLETED DATE/TIME: 09/21/2017 3:17 am REASON FOR STUDY: left kidney infection COMPARISON: CT abdomen and pelvis 03/14/2011. TECHNIQUE: Dynamic and static grayscale images acquired of the kidneys and bladder and recorded on P ACS. Additional selected color Doppler images recorded. LIMITATIONS: None. FINDINGS: RIGHT KIDNEY: Measures 10.2 x 4.5 x 5.1 cm. Normal echogenicity. No hydronephrosis. No shavon cifications. LEFT KIDNEY: Measures 11.3 x 6.6 x 6.1 cm. Normal echogenicity. No hydronephrosis. There is a 0.8 x 1.0 x 0.7 cm echogenic focus with posterior shadowing at the left kidney, suggestive of a nonobstruc ting calculus. BLADDER: Bilateral ureteral jets were visualized. IMPRESSION: No hydronephrosis. Nonobstructing left nephrolithiasis. TECHNICAL DOCUMENTATION: JOB ID: [id number] [employer].- All Rights Reserved
[2017-09-21] MEDS ORDERED: ONDANSETRON HCL INJ/PF 4 MG/2 ML SDV IV PRN (04:15)
[2017-09-21] MEDS ORDERED: OXYCODONE-ACETAMINOPHEN 5-325 MG TABLET PO PRN (04:56)
--- NOTE | 2017-09-21 04:56 | PDOC H&P ---
History of Present Illness Admission Date/PCP: KYLAH MANTILLA MD History of Present Illness: ODALIS ALMANZAR is a 57 year old female with a PMH of bipolar disorder, dvt, hypertension, asthma, GERD and one time seizure presents with complaints of fever Patient reports that her kidney function and started earlier this week. She has been having pain in her left flank and burning with urination. She saw her primary care physician was initially placed on nitrofurantoin. Patient says tonight she was having increased burning on urination and had she felt fever and chills. She reports her chills were significant enough to give her a headache. Patient reports she is feeling much improved after initiation of antibiotics and fluids. She is referred to hospital service for pyelonephritis and sepsis. Past Medical History Cardiac Medical History: Reports: Hypertension Pulmonary Medical History: Reports: Asthma, Bronchitis Denies: Tuberculosis Neurological Medical History: Reports: Seizures GI Medical History: Reports: Gastroesophageal Reflux Disease Musculoskeltal Medical History: Reports: Arthritis Psychiatric Medical History: Reports: Bipolar Disorder Denies: Depression, Post Traumatic Stress Disorder Past Surgical History Past Surgical History: Reports: Hysterectomy Denies: Pacemaker Social History Smoking Status: Never Smoker Frequency of Alcohol Use: None Hx Recreational Drug Use: No Hx Prescription Drug Abuse: No - Advance Directive Resuscitation Status: Full Code Surrogate healthcare decision maker:: Josh Flores Family History Family History: Hypertension Parental Family History Reviewed: Yes Children Family History Reviewed: Yes Sibling(s) Family History Reviewed.: Yes Medication/Allergy Home Medications: Citalopram Hydrobromide [Celexa 40 mg Tablet] 40 mg PO DAILY 09/13/12 Lisinopril/Hydrochlorothiazide [Zestoretic 20-25 mg Tablet] 1 each PO DAILY 13/10 [place] Carbonate 600 mg PO BID 09/13/12 Montelukast Sodium [Singulair 10 mg Tablet] 10 mg PO QHS 09/13/12 Omeprazole [Prilosec 40 mg Capsule] 40 mg PO BID 09/13/12 Albuterol Sulfate [Proair HFA Inhalation Aerosol 8.5 gm MDI] 2 puff IH Q4H 09/17 Doxycycline Hyclate [Oraxyl] 40 mg PO 09/17/12 Levetiracetam [Keppra 500 mg Tablet] 500 mg PO Q12A #0 tablet 09/17/12 Prednisone 20 mg PO 09/17/12 Levetiracetam [Keppra 500 Mg Tablet] 500 mg PO BID #20 tablet 09/29/12 Doxycycline Hyclate [Vibramycin 100 mg Tablet] 100 mg PO BID #20 tablet Ipratropium/Albuterol Sulfate [Combivent Respimat 4 gm Mdi] 1 puff IH Q4 #1 aer.w.adap 12/28/13 Ondansetron HCl [Zofran 4 mg Tablet] 1 - 2 tab PO Q4H PRN #10 tablet 12/28/13 Prednisone 10 mg PO 6XD #21 tablet 12/28/13 Butalb/Acetaminophen/Caffeine [Fioricet (50-325-40 mg) Tablet] 1 tab PO Q4HP PRN #30 tab 12/01/16 Ciprofloxacin HCl [Cipro 500 mg Tablet] 500 mg PO BID #10 tablet 12/01/16 Allergies/Adverse Reactions: lactose Adverse Reaction (Intermediate, Verified 11/22/16 06:55) prednisone Adverse Reaction (Intermediate, Verified 11/22/16 06:55) Anxiety aspirin [Aspirin] Adverse Reaction (Verified 11/22/16 06:55) Penicillins Adverse Reaction (Verified 11/22/16 06:55) Review of Systems Constitutional: PRESENT: chills, fatigue, fever(s), headache(s), weakness. ABSENT: weight gain, weight loss Eyes: ABSENT: visual disturbances Ears: ABSENT: hearing changes Cardiovascular: ABSENT: chest pain, dyspnea on exertion, edema, orthropnea, palpitations Respiratory: ABSENT: cough, dyspnea, hemoptysis, sputum Gastrointestinal: PRESENT: nausea, vomiting. ABSENT: abdominal pain, constipation, diarrhea, hematemesis, hematochezia Genitourinary: PRESENT: difficulty urinating, dysuria, hematuria. ABSENT: nocturia Musculoskeletal: ABSENT: joint swelling Integumentary: ABSENT: rash, wounds Neurological: ABSENT: abnormal gait, abnormal speech, confusion, dizziness, focal weakness, syncope Psychiatric: ABSENT: anxiety, depression, homidical ideation, suicidal ideation Endocrine: ABSENT: cold intolerance, heat intolerance, polydipsia, polyuria Hematologic/Lymphatic: ABSENT: easy bleeding, easy bruising Physical Exam Vital Signs: Temp Pulse Resp BP Pulse Ox 99.7 F 117 H 18 145/83 H 100 09/20/17 23:47 09/20/17 23:47 09/20/17 23:47 09/20/17 23:47 09/20/17 23:47 General appearance: PRESENT: mild distress, well-developed, well-nourished, other - Ill-appearing Head exam: PRESENT: atraumatic, normocephalic Eye exam: PRESENT: conjunctiva pink, EOMI, PERRLA. ABSENT: scleral icterus Ear exam: PRESENT: normal external ear exam Mouth exam: PRESENT: moist, tongue midline Neck exam: ABSENT: JVD, lymphadenopathy, thyromegaly, tracheal deviation Respiratory exam: PRESENT: clear to auscultation boni, unlabored. ABSENT: rales , rhonchi, wheezes Cardiovascular exam: PRESENT: RRR, +S1, +S2. ABSENT: diastolic murmur, rubs, systolic murmur Pulses: PRESENT: normal dorsalis pedis pul Vascular exam: PRESENT: normal capillary refill GI/Abdominal exam: PRESENT: normal bowel sounds, soft. ABSENT: distended, guarding, mass, organolmegaly, rebound, tenderness Rectal exam: PRESENT: deferred Extremities exam: PRESENT: full ROM. ABSENT: calf tenderness, clubbing, pedal edema Neurological exam: PRESENT: alert, awake, oriented to person, oriented to place , oriented to time, oriented to situation, CN II-XII grossly intact. ABSENT: motor sensory deficit Psychiatric exam: PRESENT: appropriate affect, normal mood. ABSENT: homicidal ideation, suicidal ideation Skin exam: PRESENT: dry, intact, warm. ABSENT: cyanosis, rash Results Laboratory Results: 09/21/17 00:12 09/21/17 00:12 09/20/17 09/21/17 09/21/17 23:50 00:12 00:12 WBC 17.5 H RBC 4.01 Hgb 11.4 L Hct 33.3 L MCV 83 MCH 28.5 MCHC 34.3 RDW 14.6 H Plt Count 347 Seg Neutrophils % 85.9 H Lymphocytes % 7.6 L Monocytes % 3.5 Eosinophils % 2.2 Basophils % 0.8 Absolute Neutrophils 15.0 H Absolute Lymphocytes 1.3 Absolute Monocytes 0.6 Absolute Eosinophils 0.4 Absolute Basophils 0.1 Sodium 142.4 Potassium 4.0 Chloride 104 Carbon Dioxide 26 Anion Gap 12 BUN 29 H Creatinine 0.74 Est GFR ( Amer) > 60 Est GFR (Non-Af Amer) > 60 Glucose 122 H Calcium 9.7 Urine Color STRAW Urine Appearance SLIGHTLY-CLOUDY Urine pH 5.0 Ur Specific [place] 1.009 Urine Protein NEGATIVE Urine Glucose (UA) NEGATIVE Urine Ketones NEGATIVE Urine Blood SMALL H Urine Nitrite NEGATIVE Ur Leukocyte Esterase MODERATE H Urine WBC (Auto) 20 Urine RBC (Auto) 3 Impressions: Renal Ultrasound 09/21/17 02:15 IMPRESSION: No hydronephrosis. Nonobstructing left nephrolithiasis. Assessment & Plan - Diagnosis (1) Sepsis Qualifiers: Sepsis type: sepsis due to unspecified organism Qualified Code(s): A41.9 - Sepsis, unspecified organism Is this a current diagnosis for this admission?: Yes Plan: Maintain map greater than 65. Secondary to pyelonephritis. (2) Pyelonephritis Is this a current diagnosis for this admission?: Yes Plan: Place patient on telemetry and give IV fluids. Initiate on Rocephin pending culture. Percocet and morphine for pain control. (3) Bipolar disorder Qualifiers: Active/Remission status: remission status unspecified Qualified Code(s): F31.9 - Bipolar disorder, unspecified Is this a current diagnosis for this admission?: Yes Plan: Continue home medications once reconciled. Current medication list is automatically generated by [employer] and does not reflect an accurate description of her medications. Medications are currently being reconciled and are unavailable to me at this time. - Time Time Spent: 30 to 50 Minutes Medications reviewed and adjusted accordingly: Yes Anticipated discharge: Home Within: within 72 hours - Inpatient Certification Based on my medical assessment, after consideration of the patient's comorbidities, presenting symptoms, or acuity I expect that the services needed warrant INPATIENT care.: Yes I certify that my determination is in accordance with my understanding of Medicare's requirements for reasonable and necessary INPATIENT services [42 CFR 412.3e].: Yes Medical Necessity: Need For IV Fluids, Need for Pain Control, Need for IV Antibiotics Post Hospital Care: D/C Net [employer] Developer Documentation
[2017-09-21] MEDS: ACETAMINOPHEN 325 MG TABLET PO PRN (05:02)
[2017-09-21] MEDS: NORMAL SALINE 1000 ML 1,000 ML IV PRN ×2 (05:03→16:27)
[2017-09-21] MEDS: CEFTRIAXONE 2 GM/D5W RTU 2 GM/50 ML RTUPB IV SCH (10:09)
[2017-09-21] MEDS: DOCUSATE SODIUM 100 MG CAPSULE PO SCH (10:10)
[2017-09-21] MEDS: ENOXAPARIN SODIUM INJ 40 MG/0.4 ML DISP.SYRIN SUBCUT SCH (10:11)
[2017-09-21] MEDS ORDERED: (PENDING PHARMACY ID) (Citalopram Hydrobromide [Celexa 40 Mg Tablet] 40 MG) PO SCH (17:45)
[2017-09-21] MEDS ORDERED: (PENDING PHARMACY ID) (Clonazepam [Klonopin] 0.5 MG) PO PRN (17:45)
[2017-09-21] MEDS ORDERED: (PENDING PHARMACY ID) (Zolpidem Tartrate [Ambien] 5 MG) PO PRN (17:45)
[2017-09-21] MEDS ORDERED: LITHIUM CARBONATE 300 MG CAPSULE PO SCH (18:00)
--- NOTE | 2017-09-21 18:02 | Progress Note ---
Provider Note Provider Note: Patient refers that she began experiencing fever chills and shake. She had been experiencing problems passing water and when she deviated noticed some blood. She was evaluated by her primary care provider who placed her on antibiotic which she was able to take only for 1 day but then she got progressively worse. She contacted 911 since she was getting progressively worse. Patient admits having history of bipolar disorder, high blood pressure, DVT in her right leg and she lives by herself. She admits that she is feeling somewhat better when compared to admission to ED. Assessment and plan: *Sepsis: Source urinary tract infection. Continue Rocephin IV. *Urinary tract infection continue Rocephin IV
[2017-09-21] MEDS ORDERED: CLONAZEPAM 1 MG TABLET PO PRN (19:04)
[2017-09-21] MEDS ORDERED: ZOLPIDEM TARTRATE 5 MG TABLET PO PRN (19:21)
[2017-09-21] MEDS: MORPHINE SULFATE 10 MG/ML INJ IV PRN (19:35)
[2017-09-21] MEDS: LITHIUM CARBONATE 300 MG CAPSULE PO SCH (21:29)
[2017-09-21] MEDS: BUDESONIDE/FORMOTEROL 160-4.5 MCG 60 PUFF/6 GM MDI IH SCH (21:30)
[2017-09-21] MEDS: ATORVASTATIN CALCIUM 10 MG TABLET PO SCH (21:30)
[2017-09-21] MEDS: ZOLPIDEM TARTRATE 5 MG TABLET PO PRN (21:33)
[2017-09-22] MEDS: NORMAL SALINE 1000 ML 1,000 ML IV PRN ×3 (00:11→21:44)
[2017-09-22 05:13] LABS: ABSOLUTE BASOPHILS # (AUTO) 0.1 10^3/uL (0.0-0.2); ABSOLUTE EOSINOPHILS # (AUTO) 0.7 10^3/uL (0.0-0.6); ABSOLUTE LYMPHOCYTES (AUTO) 2.1 10^3/uL (0.5-4.7); ABSOLUTE MONOCYTES (AUTO) 0.3 10^3/uL (0.1-1.4); ABSOLUTE NEUT (AUTO) 4.3 10^3/uL (1.7-8.2); BASOPHILS % (AUTO) 0.8 % (0-2); EOSINOPHILS % (AUTO) 9.1 % (0-6); HEMATOCRIT 29.6 % (36.0-47.0); HEMOGLOBIN 10.1 g/dL (12.0-15.5); HGB HCT DIFFERENCE 0.7; MEAN CORPUSCULAR HEMOGLOBIN 28.7 pg (27.0-33.4); MEAN CORPUSCULAR VOLUME 85 fl (80-97); MONOCYTES % (AUTO) 4.2 % (3-13); RED CELL DISTRIBUTION WIDTH 14.8 % (11.5-14.0); SEGMENTED NEUTROPHILS % (AUTO) 57.9 % (42-78); WHITE BLOOD COUNT 7.4 10^3/uL (4.0-10.5)
[2017-09-22] MEDS: MORPHINE SULFATE 10 MG/ML INJ IV PRN (05:20)
[2017-09-22 05:38] LABS: ANION GAP 10 (5-19); BLOOD UREA NITROGEN 13 mg/dL (7-20); CALCIUM 8.6 mg/dL (8.4-10.2); CARBON DIOXIDE 23 mmol/L (22-30); CHLORIDE 108 mmol/L (98-107); CREATININE RESULT 0.64 mg/dL (0.52-1.25); GLUCOSE 103 mg/dL (75-110); POTASSIUM 4.2 mmol/L (3.6-5.0); SODIUM 141.4 mmol/L (137-145)
[2017-09-22] MEDS ORDERED: (PENDING PHARMACY ID) (Mometasone Furoate [Nasonex] 2 SPRAY) NS SCH (10:00)
[2017-09-22] MEDS ORDERED: (PENDING PHARMACY ID) (Loratadine [Claritin] 10 MG) PO SCH (10:00)
[2017-09-22] MEDS: ENOXAPARIN SODIUM INJ 40 MG/0.4 ML DISP.SYRIN SUBCUT SCH (10:35)
[2017-09-22] MEDS: CITALOPRAM HYDROBROMIDE 20 MG TABLET PO SCH (10:35)
[2017-09-22] MEDS: LORATADINE 10 MG TABLET PO SCH (10:35)
[2017-09-22] MEDS: LITHIUM CARBONATE 300 MG CAPSULE PO SCH ×2 (10:36→21:38)
[2017-09-22] MEDS: BUDESONIDE/FORMOTEROL 160-4.5 MCG 60 PUFF/6 GM MDI IH SCH ×2 (10:37→21:46)
[2017-09-22] MEDS: CEFTRIAXONE 2 GM/D5W RTU 2 GM/50 ML RTUPB IV SCH (10:39)
[2017-09-22] MEDS: DOCUSATE SODIUM 100 MG CAPSULE PO SCH (10:42)
[2017-09-22] MEDS: LANSOPRAZOLE 30 MG TAB.RAP.DR PO SCH (10:42)
--- NOTE | 2017-09-22 18:18 | PDOC PROGRESS REPORT ---
Subjective Progress Note for:: 09/22/17 Subjective:: Patient relates that feels better but still having left-sided back pain off and on ROS: all organ systems evaluated and negative except as in subjective All laboratories and significant diagnostics reviewed Reason For Visit: PYELONEPHRITIS,SEPSIS Physical Exam Vital Signs: Temp Pulse Resp BP Pulse Ox 98.5 F 99 18 130/72 H 97 09/22/17 00:09 09/22/17 02:00 09/22/17 00:09 09/22/17 00:09 09/22/17 00:09 Intake & Output 09/20/17 09/21/17 09/22/17 06:59 06:59 06:59 Intake Total 315 Balance 315 Weight 81.8 kg 89.2 kg General appearance: PRESENT: no acute distress, cooperative, obese Head exam: PRESENT: atraumatic, normocephalic Eye exam: PRESENT: conjunctiva pink, EOMI, PERRLA Ear exam: PRESENT: normal external ear exam, TM's normal bilaterally Mouth exam: PRESENT: moist, neck supple Neck exam: PRESENT: full ROM. ABSENT: JVD, tenderness Respiratory exam: PRESENT: clear to auscultation boni. ABSENT: crackles, rhonchi Cardiovascular exam: PRESENT: RRR. ABSENT: diastolic murmur, systolic murmur Vascular exam: PRESENT: normal capillary refill GI/Abdominal exam: PRESENT: normal bowel sounds, soft. ABSENT: tenderness Extremities exam: PRESENT: full ROM. ABSENT: joint swelling, pedal edema Musculoskeletal exam: PRESENT: full ROM Neurological exam: PRESENT: alert, oriented to person, oriented to place, oriented to time Psychiatric exam: PRESENT: appropriate affect, normal mood Results Impressions: Renal Ultrasound 09/21/17 02:15 IMPRESSION: No hydronephrosis. Nonobstructing left nephrolithiasis. Assessment & Plan - Diagnosis (1) Bipolar disorder Qualifiers: Active/Remission status: remission status unspecified Qualified Code(s): F31.9 - Bipolar disorder, unspecified Is this a current diagnosis for this admission?: Yes Plan: Continue outpatient regimen (2) Headache Qualifiers: Headache type: unspecified Headache chronicity pattern: acute headache Intractability: not intractable Qualified Code(s): R51 - Headache Plan: Improved (3) Pyelonephritis Is this a current diagnosis for this admission?: Yes Plan: Urine culture demonstrating mixed kaylah however the presentation is consistent with that of urinary tract infection (4) Sepsis Qualifiers: Sepsis type: sepsis due to unspecified organism Qualified Code(s): A41.9 - Sepsis, unspecified organism Is this a current diagnosis for this admission?: Yes Plan: Due to urinary tract infection - Time Time Spent with patient: 15-24 minutes Medications reviewed and adjusted accordingly: Yes Anticipated discharge: Home Within: within 24 hours - Inpatient Certification Based on my medical assessment, after consideration of the patient's comorbidities, presenting symptoms, or acuity I expect that the services needed warrant INPATIENT care.: Yes I certify that my determination is in accordance with my understanding of Medicare's requirements for reasonable and necessary INPATIENT services [42 CFR 412.3e].: Yes Medical Necessity: Need for IV Antibiotics
[2017-09-22] MEDS: CEFUROXIME 500 MG TABLET PO SCH (18:19)
[2017-09-22] MEDS: ZOLPIDEM TARTRATE 5 MG TABLET PO PRN (21:38)
[2017-09-22] MEDS: ATORVASTATIN CALCIUM 10 MG TABLET PO SCH (21:38)
[2017-09-23] MEDS: NORMAL SALINE 1000 ML 1,000 ML IV PRN (04:38)
[2017-09-23] MEDS: BUDESONIDE/FORMOTEROL 160-4.5 MCG 60 PUFF/6 GM MDI IH SCH (09:39)
[2017-09-23] MEDS: CEFUROXIME 500 MG TABLET PO SCH (09:39)
[2017-09-23] MEDS: CITALOPRAM HYDROBROMIDE 20 MG TABLET PO SCH (09:39)
[2017-09-23] MEDS: LITHIUM CARBONATE 300 MG CAPSULE PO SCH (09:40)
[2017-09-23] MEDS: ENOXAPARIN SODIUM INJ 40 MG/0.4 ML DISP.SYRIN SUBCUT SCH (09:40)
[2017-09-23] MEDS: LORATADINE 10 MG TABLET PO SCH (09:40)
[2017-09-23] MEDS: LANSOPRAZOLE 30 MG TAB.RAP.DR PO SCH (09:41)
[2017-09-23] MEDS: DOCUSATE SODIUM 100 MG CAPSULE PO SCH (09:41)
[2017-09-23] MEDS: ACETAMINOPHEN 325 MG TABLET PO PRN (09:45)
[2017-09-23 12:37] VITALS: BP 145/71
[2017-09-23] MEDS ORDERED: AMLODIPINE BESYLATE 5 MG TABLET PO ONE (13:00)
--- NOTE | 2017-09-27 07:17 | PDOC DISCHARGE SUMMARY ---
General - Admit/Disc Date/PCP Admission Date/Primary Care Provider: 09/21/17 04:46 KYLAH MANTILLA MD Discharge Date: 09/23/17 - Discharge Diagnosis (1) Pyelonephritis Is this a current diagnosis for this admission?: Yes (2) Sepsis Is this a current diagnosis for this admission?: Yes (3) Bipolar disorder Is this a current diagnosis for this admission?: Yes (5) Nephrolithiasis Is this a current diagnosis for this admission?: Yes (6) HTN (hypertension) Is this a current diagnosis for this admission?: Yes - Additional Information Resuscitation Status: Full Code Discharge Diet: As Tolerated Discharge Activity: Activity As Tolerated Home Medications: Acetaminophen [Tylenol Extra Strength 500 mg Tablet] 500 mg PO Q6HP PRN Atorvastatin Calcium [Lipitor 10 mg Tablet] 10 mg PO QHS 09/21/17 Budesonide/Formoterol Fumarate [Symbicort HFA 160-4.5 mcg Inhaler 6 gm] 2 puff IH Q12 09/21/17 Citalopram Hydrobromide [Celexa 40 mg Tablet] 40 mg PO DAILY 09/21/17 Clonazepam [Klonopin] 0.5 mg PO BIDP PRN 09/21/17 Esomeprazole Magnesium [Nexium] 40 mg PO DAILY 09/21/17 Lisinopril/Hydrochlorothiazide [Lisinopril-Hctz 20-25 mg Tab] 1 each PO DAILY [place] Carbonate [Lithobid 300 mg Capsule] 600 mg PO BID 09/21/17 Loratadine [Claritin] 10 mg PO DAILY 09/21/17 Mometasone Furoate [Nasonex] 2 spray NS DAILY 09/21/17 Zolpidem Tartrate [Ambien] 5 mg PO HSP PRN 09/21/17 Cefuroxime Axetil [Ceftin 500 mg Tablet] 500 mg PO BID #30 tablet 09/23/17 Tamsulosin HCl [Flomax 0.4 mg Cap.sr] 0.4 mg PO DAILY #30 cap.sr.24h 09/23/17 History of Present Illness History of Present Illness: ODALIS ALMANZAR is a 57 year old female with a PMH of bipolar disorder, dvt, hypertension, asthma, GERD and one time seizure presents with complaints of fever. She had been having pain in her left flank and burning with urination. She saw her primary care physician and was initially placed on nitrofurantoin. Patient related she was having increased burning on urination and had she felt fever and chills. She reported her chills were significant enough to give her a headache. Patient reported she was feeling much improved after initiation of antibiotics and fluids. She was referred to hospital service for pyelonephritis and sepsis Hospital Course Hospital Course: Patient was placed on Rocephin IV with further improvement of symptoms. Urine culture demonstrated mixed kaylah however we opted to continue antibiotic treatments since presentation was consistent with this medical condition. Patient was transitioned to Ceftin 1 p.o. twice daily which she was to take for 10 days. She was placed also on Flomax. Sonogram on the day of admission showed a left-sided kidney stone which contributed to left costovertebral pain. Patient has been advised as to follow-up with urologist. [place] level was slightly decreased however she is to follow-up with prescribing physician. Since patient had achieved maximum benefit of hospitalization stay prompted to discharge under stable condition Physical Exam Vital Signs: Temp Pulse Resp BP Pulse Ox 97.7 F 86 18 147/80 H 97 09/23/17 04:41 09/23/17 04:41 09/23/17 04:41 09/23/17 04:41 09/23/17 04:41 Intake & Output 09/21/17 09/22/17 09/23/17 06:59 06:59 06:59 Intake Total 1987 1655 Output Total Balance 1987 1650 Weight 81.8 kg 89.7 kg 85.8 kg General appearance: PRESENT: no acute distress, cooperative, obese Head exam: PRESENT: atraumatic, normocephalic Eye exam: PRESENT: EOMI, PERRLA Ear exam: PRESENT: normal external ear exam Mouth exam: PRESENT: moist, neck supple Neck exam: PRESENT: full ROM. ABSENT: JVD, tenderness Respiratory exam: PRESENT: clear to auscultation boni Cardiovascular exam: PRESENT: RRR. ABSENT: diastolic murmur, systolic murmur Vascular exam: PRESENT: normal capillary refill GI/Abdominal exam: PRESENT: normal bowel sounds, soft, tenderness - left costovertebral Extremities exam: PRESENT: full ROM. ABSENT: joint swelling, pedal edema Musculoskeletal exam: PRESENT: ambulatory, full ROM Neurological exam: PRESENT: alert, oriented to person, oriented to place, oriented to time, CN II-XII grossly intact Psychiatric exam: PRESENT: appropriate affect, normal mood Skin exam: PRESENT: normal color Results Laboratory Results: 09/22/17 05:02 09/22/17 05:02 Impressions: Renal Ultrasound 09/21/17 02:15 IMPRESSION: No hydronephrosis. Nonobstructing left nephrolithiasis. Plan Discharge Plan: Discharge home Time Spent: Less than 30 Minutes
== END 2017-09-23 13:26 | disposition home or self-care (01) | DRG 872 ==
LOC: ER 23:37 → EH 09-21 04:46 → 3W 09-21 15:19
PROVIDERS: ADMIT Family Medicine; ATTEND Family Medicine
DX: A41.9 Sepsis, unspecified organism (principal); N12 Tubulo-interstitial nephritis, not specified as acute or chronic; R51 Headache; F31.9 Bipolar disorder, unspecified; I10 Essential (primary) hypertension; K21.9 Gastro-esophageal reflux disease without esophagitis; G40.909 Epilepsy, unspecified, not intractable, without status epilepticus; Z60.2 Problems related to living alone; Z79.2 Long term (current) use of antibiotics; Z79.51 Long term (current) use of inhaled steroids; Z79.899 Other long term (current) drug therapy; Z88.6 Allergy status to analgesic agent; Z88.0 Allergy status to penicillin; Z88.8 Allergy status to other drugs, medicaments and biological substances; Z86.718 Personal history of other venous thrombosis and embolism
CPT/HCPCS: 36415; 76770; 80048; 80178; 81001; 85025; 87040; 87086; 96361; 96365; 96375; 99285; J0696; J1170; J1200; J1650; J2270; J2765; J3490; J7030

== ENCOUNTER → 2018-01-10 | Outpatient (CLI) | payer MEDICAID ==
[2018-01-10 11:29] LABS: HEMATOCRIT 40.1 % (36.0-47.0); HEMOGLOBIN 13.3 g/dL (12.0-15.5); MEAN CORPUSCULAR HEMOGLOBIN 26.7 pg (27.0-33.4); MEAN CORPUSCULAR HGB CONC 33.2 g/dL (32.0-36.0); MEAN CORPUSCULAR VOLUME 81 fl (80-97); PLATELET COUNT 319 10^3/uL (150-450); RED BLOOD COUNT 4.98 10^6/uL (3.72-5.28); RED CELL DISTRIBUTION WIDTH 15.2 % (11.5-14.0); WHITE BLOOD COUNT 6.9 10^3/uL (4.0-10.5)
[2018-01-10 12:01] LABS: ANION GAP 7 (5-19); BLOOD UREA NITROGEN 17 mg/dL (7-20); CALCIUM 9.8 mg/dL (8.4-10.2); CARBON DIOXIDE 31 mmol/L (22-30); CHLORIDE 104 mmol/L (98-107); GLUCOSE 93 mg/dL (75-110); LITHIUM 0.3 mEq/L (0.6-1.2); POTASSIUM 4.3 mmol/L (3.6-5.0); SODIUM 141.6 mmol/L (137-145)
[2018-01-10 12:12] LABS: FREE T4 (FREE THYROXINE) 1.08 ng/dL (0.78-2.19)
[2018-01-10 12:26] LABS: THYROID STIMULATING HORMONE 0.9 uIU/mL (0.47-4.68)
== END ==
LOC: OD 10:20
PROVIDERS: ATTEND Psychiatry & Neurology Psychiatry
DX: F31.31 Bipolar disorder, current episode depressed, mild (principal); Z79.899 Other long term (current) drug therapy
CPT/HCPCS: 36415; 80048; 80178; 84439; 84443; 85027

== ENCOUNTER → 2018-05-29 | Outpatient (CLI) | payer MEDICAID ==
--- NOTE | 2018-05-29 13:21 | RADIOLOGY REPORT (SQ) ---
EXAM DESCRIPTION: L SPINE 2 VIEWS COMPLETED DATE/TIME: 05/29/2018 10:55 am REASON FOR STUDY: LOW BACK PAIN M54.5 LOW BACK PAIN COMPARISON: None. NUMBER OF VIEWS: Two views. TECHNIQUE: AP and lateral radiographic images acquired of the lumbar spine. LIMITATIONS: None. FINDINGS: MINERALIZATION: Normal. SEGMENTATION: Normal. No transitional anatomy. ALIGNMENT: Normal. VERTEBRAE: Maintained height. No fracture or worrisome bone lesion. DISCS: Preserved height. No significant osteophytes or end plate irregularity. POSTERIOR ELEMENTS: Pedicles and facets are intact. No pars defect or posterior arch defects. Bilat eral facet arthropathy at L4-5 and L5-S1. HARDWARE: None in the spine. PARASPINAL SOFT TISSUES: Normal. PELVIS: Not included in the field of view. Mild bilateral SI joint sclerosis. OTHER: No other significant finding. IMPRESSION: Lower lumbar spine facet arthropathy. Mild bilateral SI joint sclerosis TECHNICAL DOCUMENTATION: JOB ID: [id number] [employer]- All Rights Reserved Reading location - IP/workstation name: [email or web address]
== END ==
LOC: RAD 10:45
PROVIDERS: ATTEND Internal Medicine
DX: M54.5 Low back pain (principal)
CPT/HCPCS: 72100

== ENCOUNTER → 2018-06-05 | Outpatient (CLI) | payer MEDICAID ==
[2018-06-05 08:23] LABS: HEMATOCRIT 37.8 % (36.0-47.0); HEMOGLOBIN 12.7 g/dL (12.0-15.5); MEAN CORPUSCULAR HEMOGLOBIN 27.3 pg (27.0-33.4); MEAN CORPUSCULAR HGB CONC 33.6 g/dL (32.0-36.0); MEAN CORPUSCULAR VOLUME 81 fl (80-97); PLATELET COUNT 396 10^3/uL (150-450); RED BLOOD COUNT 4.65 10^6/uL (3.72-5.28); RED CELL DISTRIBUTION WIDTH 15.2 % (11.5-14.0); WHITE BLOOD COUNT 7.8 10^3/uL (4.0-10.5)
[2018-06-05 08:41] LABS: BLOOD UREA NITROGEN 19 mg/dL (7-20); LITHIUM 0.4 mEq/L (0.6-1.2)
[2018-06-05 08:57] LABS: FREE T4 (FREE THYROXINE) 1.23 ng/dL (0.78-2.19)
[2018-06-05 09:11] LABS: THYROID STIMULATING HORMONE 0.48 uIU/mL (0.47-4.68)
== END ==
LOC: OD 07:48
PROVIDERS: ATTEND Psychiatry & Neurology Psychiatry
DX: F31.31 Bipolar disorder, current episode depressed, mild (principal)
CPT/HCPCS: 36415; 80178; 82565; 84439; 84443; 84520; 85027

== ENCOUNTER → 2019-05-23 | Outpatient (CLI) | payer MEDICAID ==
[2019-05-23 10:45] LABS: ABSOLUTE BASOPHILS # (AUTO) 0.1 10^3/uL (0.0-0.2); ABSOLUTE EOSINOPHILS # (AUTO) 0.8 10^3/uL (0.0-0.6); ABSOLUTE LYMPHOCYTES (AUTO) 2.9 10^3/uL (0.5-4.7); ABSOLUTE MONOCYTES (AUTO) 0.4 10^3/uL (0.1-1.4); BASOPHILS % (AUTO) 0.9 % (0-2); EOSINOPHILS % (AUTO) 9.8 % (0-6); HEMATOCRIT 38.8 % (36.0-47.0); HEMOGLOBIN 13.2 g/dL (12.0-15.5); LYMPHOCYTES % (AUTO) 35.3 % (13-45); MEAN CORPUSCULAR HEMOGLOBIN 28.2 pg (27.0-33.4); MEAN CORPUSCULAR HGB CONC 34.1 g/dL (32.0-36.0); MEAN CORPUSCULAR VOLUME 83 fl (80-97); MONOCYTES % (AUTO) 4.7 % (3-13); PLATELET COUNT 335 10^3/uL (150-450); RED BLOOD COUNT 4.68 10^6/uL (3.72-5.28); RED CELL DISTRIBUTION WIDTH 14.4 % (11.5-14.0); SEGMENTED NEUTROPHILS % (AUTO) 49.3 % (42-78); TOTAL CELLS COUNTED % (AUTO) 100 %; WHITE BLOOD COUNT 8.1 10^3/uL (4.0-10.5)
[2019-05-23 11:15] LABS: ANION GAP 8 (5-19); BLOOD UREA NITROGEN 14 mg/dL (7-20); CALCIUM 9.8 mg/dL (8.4-10.2); CARBON DIOXIDE 31 mmol/L (22-30); CHLORIDE 102 mmol/L (98-107); GLUCOSE 101 mg/dL (75-110); LITHIUM 0.7 mEq/L (0.6-1.2); POTASSIUM 4.8 mmol/L (3.6-5.0)
[2019-05-23 11:28] LABS: FREE T4 (FREE THYROXINE) 1.05 ng/dL (0.78-2.19)
[2019-05-23 11:42] LABS: THYROID STIMULATING HORMONE 1.28 uIU/mL (0.47-4.68)
== END ==
LOC: OD 09:46
PROVIDERS: ATTEND Psychiatry & Neurology Psychiatry
DX: F31.31 Bipolar disorder, current episode depressed, mild (principal); Z79.899 Other long term (current) drug therapy
CPT/HCPCS: 36415; 80048; 80178; 84439; 84443; 85025

== ENCOUNTER 2019-10-03 07:39 | Emergency (ER) | payer MEDICAID ==
[2019-10-03 08:48] LABS: ABSOLUTE BASOPHILS # (AUTO) 0.1 10^3/uL (0.0-0.2); ABSOLUTE EOSINOPHILS # (AUTO) 0.3 10^3/uL (0.0-0.6); ABSOLUTE LYMPHOCYTES (AUTO) 1.9 10^3/uL (0.5-4.7); ABSOLUTE MONOCYTES (AUTO) 0.4 10^3/uL (0.1-1.4); ABSOLUTE NEUT (AUTO) 4.1 10^3/uL (1.7-8.2); BASOPHILS % (AUTO) 1.3 % (0-2); EOSINOPHILS % (AUTO) 4.6 % (0-6); HEMATOCRIT 37.2 % (36.0-47.0); HEMOGLOBIN 12.7 g/dL (12.0-15.5); LYMPHOCYTES % (AUTO) 28.5 % (13-45); MEAN CORPUSCULAR HEMOGLOBIN 28.5 pg (27.0-33.4); MEAN CORPUSCULAR HGB CONC 34.3 g/dL (32.0-36.0); MEAN CORPUSCULAR VOLUME 83 fl (80-97); MONOCYTES % (AUTO) 5.3 % (3-13); PLATELET COUNT 373 10^3/uL (150-450); RED BLOOD COUNT 4.47 10^6/uL (3.72-5.28); RED CELL DISTRIBUTION WIDTH 14.3 % (11.5-14.0); SEGMENTED NEUTROPHILS % (AUTO) 60.3 % (42-78); TOTAL CELLS COUNTED % (AUTO) 100 %; WHITE BLOOD COUNT 6.8 10^3/uL (4.0-10.5)
[2019-10-03 08:59] LABS: ALBUMIN 4.3 g/dL (3.5-5.0); ALKALINE PHOSPHATASE 121 U/L (38-126); ANION GAP 13 (5-19); ASPARTATE AMINO TRANSFERASE 29 U/L (14-36); BILIRUBIN,DIRECT 0.1 mg/dL (0.0-0.4); BILIRUBIN,TOTAL 0.2 mg/dL (0.2-1.3); BLOOD UREA NITROGEN 21 mg/dL (7-20); CALCIUM 9.3 mg/dL (8.4-10.2); CARBON DIOXIDE 27 mmol/L (22-30); CHLORIDE 102 mmol/L (98-107); GLUCOSE 116 mg/dL (75-110); POTASSIUM 3.8 mmol/L (3.6-5.0); TOTAL PROTEIN 7.3 g/dL (6.3-8.2)
[2019-10-03 09:18] LABS: APPEARANCE,URINE CLEAR; BILIRUBIN,URINE NEGATIVE (NEGATIVE); COLOR,URINE STRAW; GLUCOSE, URINE NEGATIVE (NEGATIVE); KETONES,URINE NEGATIVE (NEGATIVE); LEUKOCYTE ESTERASE,URINE NEGATIVE (NEGATIVE); NITRITE,URINE NEGATIVE (NEGATIVE); PROTEIN,URINE NEGATIVE (NEGATIVE); URINE SPECIFIC GRAVITY 1.006; UROBILINOGEN,URINE NEGATIVE mg/dL (<2.0)
--- NOTE | 2019-10-03 09:36 | ER Document Report ---
ED Medical Screen (RME) - General Chief Complaint: Shortness Of Breath Stated Complaint: DIFFICULTY BREATHING Time Seen by Provider: 10/03/19 09:15 Information source: Patient Notes: Patient states that she developed a coughing episode in which she had difficulty breathing, patient states that she then started to develop left-sided chest pain and then developed right side facial numbness. Patient ports she is still having right-sided facial numbness. Patient also complains of right arm and leg weakness as well although states that she has had the weakness to the leg for the past 3 weeks. Patient states that she has had her blood pressure medications adjusted over the past 3 weeks. Patient also states that she takes Xarelto and has had a previous DVT to the right lower extremity. I have greeted and performed a rapid initial assessment of this patient. A comprehensive ED assessment and evaluation of the patient, analysis of test results and completion of the medical decision making process will be conducted by additional ED providers. TRAVEL OUTSIDE OF THE [place] IN LAST 30 DAYS: No - Related Data Allergies/Adverse Reactions: peanut Allergy (Verified 10/03/19 07:44) lactose Adverse Reaction (Intermediate, Verified 10/03/19 07:44) prednisone Adverse Reaction (Intermediate, Verified 10/03/19 07:44) Anxiety aspirin [Aspirin] Adverse Reaction (Verified 10/03/19 07:44) Penicillins Adverse Reaction (Verified 10/03/19 07:44) Past Medical History - Past Medical History Cardiac Medical History: Reports: Hx Hypercholesterolemia, Hx Hypertension Pulmonary Medical History: Reports: Hx Asthma, Hx Bronchitis Denies: Hx Tuberculosis Neurological Medical History: Reports: Hx Seizures Renal/ Medical History: Denies: Hx Peritoneal Dialysis GI Medical History: Reports: Hx Gastroesophageal Reflux Disease Musculoskeltal Medical History: Reports Hx Arthritis Psychiatric Medical History: Reports: Hx Bipolar Disorder, Hx Depression Denies: Hx Post Traumatic Stress Disorder, Hx Schizophrenia Past Surgical History: Reports: Hx Hysterectomy, Hx Inguinal Hernia. Denies: Hx Pacemaker - Immunizations Hx Diphtheria, Pertussis, Tetanus Vaccination: Yes - unknown Physical Exam - Vital signs Vitals: Resp Pulse Ox 16 100 10/03/19 07:42 10/03/19 07:42 - General General appearance: Appears well, Alert Notes: Decreased sensation to right side of face - Cardiovascular Rhythm: Regular Heart sounds: S1 appreciated, S2 appreciated Murmur: No Course - Vital Signs Vital signs: Temp Pulse Resp BP Pulse Ox 98.2 F 107 H 12 155/77 H 99 10/03/19 07:45 10/03/19 07:45 10/03/19 08:40 10/03/19 08:40 10/03/19 08:40 - Laboratory Result Diagrams: 10/03/19 08:14 10/03/19 08:14 Laboratory results interpreted by me: 10/03/19 10/03/19 08:14 08:14 RDW 14.3 H BUN 21 H Glucose 116 H
[2019-10-03 09:48] LABS: INTERNATIONAL RATION (INR) 0.93; PROTHROMBIN TIME 12.5 SEC (11.4-15.4)
[2019-10-03 09:49] LABS: PARTIAL THROMBOPLASTIN TIME 31.1 SEC (23.5-35.8)
[2019-10-03 09:53] LABS: CREATINE KINASE MB 1.69 ng/mL (<4.55)
[2019-10-03 10:03] LABS: TROPONIN I < 0.012 ng/mL
--- NOTE | 2019-10-03 10:10 | RADIOLOGY REPORT (SQ) ---
EXAM DESCRIPTION: CT HEAD WITHOUT COMPLETED DATE/TIME: 10/03/2019 9:56 am REASON FOR STUDY: facial numbness COMPARISON: 11/25/2016 TECHNIQUE: Axial images acquired through the brain without intravenous contrast. Images reviewed wi th bone, brain and subdural windows. Additional sagittal and coronal reconstructions were generated. Images stored on PACS. All CT scanners at this facility use dose modulation, iterative reconstruction, and/or weight based d osing when appropriate to reduce radiation dose to as low as reasonably achievable (ALARA). [facility]: Dose Right [facility]: CareDose [facility]: Dose Right [facility]: Teradose 4D [facility]: [employer] RADIATION DOSE: CT Rad equipment meets quality standard of care and radiation dose reduction techniq ues were employed. CTDIvol: 53.2 mGy. DLP: 991 mGy-cm. mGy. LIMITATIONS: None. FINDINGS: VENTRICLES: Normal size and contour. CEREBRUM: No masses. No hemorrhage. No midline shift. No evidence for acute infarction. Normal gra y/white matter differentiation. No areas of low density in the white matter. CEREBELLUM: No masses. No hemorrhage. No alteration of density. No evidence for acute infarction. EXTRAAXIAL SPACES: No fluid collections. No masses. ORBITS AND GLOBE: No intra- or extraconal masses. Normal contour of globe without masses. CALVARIUM: No fracture. PARANASAL SINUSES: No fluid or mucosal thickening. SOFT TISSUES: No mass or hematoma. OTHER: No other significant finding. IMPRESSION: NORMAL BRAIN CT WITHOUT CONTRAST. EVIDENCE OF ACUTE STROKE: NO. COMMENT: Quality ID # [id number]: Final reports with documentation of one or more dose reduction techniques (e.g., Automated exposure control, adjustment of the mA and/or kV according to patient size, use of iterative reconstruction technique) TECHNICAL DOCUMENTATION: JOB ID: [id number] [employer]- All Rights Reserved Reading location - IP/workstation name: [email or web address]
--- NOTE | 2019-10-03 10:15 | RADIOLOGY REPORT (SQ) ---
EXAM DESCRIPTION: CHEST 2 VIEWS COMPLETED DATE/TIME: 10/03/2019 10:08 am REASON FOR STUDY: chest pain COMPARISON: 12/28/2013 EXAM PARAMETERS: NUMBER OF VIEWS: two views TECHNIQUE: Digital Frontal and Lateral radiographic views of the chest acquired. RADIATION DOSE: NA LIMITATIONS: none FINDINGS: LUNGS AND PLEURA: No opacities, masses or pneumothorax. No pleural effusion. MEDIASTINUM AND HILAR STRUCTURES: No masses or contour abnormalities. HEART AND VASCULAR STRUCTURES: Heart normal size. No evidence for failure. BONES: No acute findings. HARDWARE: None in the chest. OTHER: No other significant finding. IMPRESSION: NO ACUTE RADIOGRAPHIC FINDING IN THE CHEST. TECHNICAL DOCUMENTATION: JOB ID: [id number] [employer]- All Rights Reserved Reading location - IP/workstation name: [email or web address]
[2019-10-03 13:09] VITALS: BP 148/60
--- NOTE | 2019-10-03 13:45 | ER Document Report ---
ED General - General Chief Complaint: Shortness Of Breath Stated Complaint: DIFFICULTY BREATHING Time Seen by Provider: 10/03/19 09:15 Mode of Arrival: Ambulatory Information source: Patient Notes: Patient states that she developed a coughing episode in which she had difficulty breathing, patient states that she then started to develop left-sided chest pain and then developed right side facial numbness. Patient ports she is still having right-sided facial numbness. Patient also complains of right arm and leg weakness as well although states that she has had the weakness to the leg for the past 3 weeks. Patient states that she has had her blood pressure medications adjusted over the past 3 weeks. Patient also states that she takes Xarelto and has had a previous DVT to the right lower extremity. TRAVEL OUTSIDE OF THE [place] IN LAST 30 DAYS: No - Related Data Allergies/Adverse Reactions: peanut Allergy (Verified 10/03/19 07:44) lactose Adverse Reaction (Intermediate, Verified 10/03/19 07:44) prednisone Adverse Reaction (Intermediate, Verified 10/03/19 07:44) Anxiety aspirin [Aspirin] Adverse Reaction (Verified 10/03/19 07:44) Penicillins Adverse Reaction (Verified 10/03/19 07:44) Past Medical History - General Information source: Patient - Social History Smoking Status: Never Smoker Family History: Hypertension Patient has suicidal ideation: No Patient has homicidal ideation: No - Past Medical History Cardiac Medical History: Reports: Hx Hypercholesterolemia, Hx Hypertension Pulmonary Medical History: Reports: Hx Asthma, Hx Bronchitis Denies: Hx Tuberculosis Neurological Medical History: Reports: Hx Seizures Renal/ Medical History: Denies: Hx Peritoneal Dialysis GI Medical History: Reports: Hx Gastroesophageal Reflux Disease Musculoskeletal Medical History: Reports Hx Arthritis Psychiatric Medical History: Reports: Hx Bipolar Disorder, Hx Depression Denies: Hx Post Traumatic Stress Disorder, Hx Schizophrenia Past Surgical History: Reports: Hx Hysterectomy, Hx Inguinal Hernia. Denies: Hx Pacemaker - Immunizations Hx Diphtheria, Pertussis, Tetanus Vaccination: Yes - unknown Hx Pneumococcal Vaccination: 09/17/12 Review of Systems - Review of Systems Constitutional: No symptoms reported EENT: No symptoms reported Cardiovascular: See HPI Respiratory: No symptoms reported Gastrointestinal: No symptoms reported Female Genitourinary: No symptoms reported Musculoskeletal: No symptoms reported Skin: No symptoms reported Hematologic/Lymphatic: No symptoms reported Neurological/Psychological: See HPI Physical Exam - Vital signs Vitals: Resp Pulse Ox 16 100 10/03/19 07:42 10/03/19 07:42 - Notes Notes: PHYSICAL EXAMINATION: GENERAL: Well-appearing, well-nourished and in no acute distress. HEAD: Atraumatic, normocephalic. EYES: Pupils equal round and reactive to light, extraocular movements intact, conjunctiva are normal. ENT: Nares patent, oropharynx clear without exudates. Moist mucous membranes. NECK: Normal range of motion, supple without lymphadenopathy LUNGS: Breath sounds clear to auscultation bilaterally and equal. No wheezes rales or rhonchi. HEART: Regular rate and rhythm without murmurs ABDOMEN: Soft, nontender, nondistended abdomen. No guarding, no rebound. No masses appreciated. Female : No CVA tenderness. Musculoskeletal: Normal range of motion, no pitting or edema. No cyanosis. NEUROLOGICAL: Face symmetric. Tongue protrudes midline. Extraocular motions intact. Pupils are 2 mm and equally reactive. Normal speech, normal gait. 5 out of 5 strength in both the distal and proximal upper and lower extremities bilaterally. Sensation is grossly intact throughout. Finger to nose testing normal. Pronator drift normal. PSYCH: Normal mood, normal affect. SKIN: Warm, Dry, normal turgor, no rashes or lesions noted. Course - Re-evaluation Re-evalutation: At the time of my initial evaluation patient has been in the department for a significant amount of time. She was initially seen by provider in triage she started her work-up. Her work-up is as outlined below. Laboratory 10/03/19 10/03/19 10/03/19 08:14 08:14 08:14 WBC 6.8 RBC 4.47 Hgb 12.7 Hct 37.2 MCV 83 MCH 28.5 MCHC 34.3 RDW 14.3 H Plt Count 373 Lymph % (Auto) 28.5 [place] % (Auto) 5.3 Eos % (Auto) 4.6 Baso % (Auto) 1.3 Absolute Neuts (auto) 4.1 Absolute Lymphs (auto) 1.9 Absolute Monos (auto) 0.4 Absolute Eos (auto) 0.3 Absolute Basos (auto) 0.1 Seg Neutrophils % 60.3 PT INR APTT Sodium 142.1 Potassium 3.8 Chloride 102 Carbon Dioxide 27 Anion Gap 13 BUN 21 H Creatinine 0.66 Est GFR ( Amer) > 60 Est GFR (MDRD) Non-Af > 60 Glucose 116 H Calcium 9.3 Total Bilirubin 0.2 Direct Bilirubin 0.1 Neonat Total Bilirubin Not Reportable Neonat Direct Bilirubin Not Reportable Neonat Indirect Bili Not Reportable AST 29 ALT 24 Alkaline Phosphatase 121 Creatine Kinase 142 H CK-MB (CK-2) Troponin I Total Protein 7.3 Albumin 4.3 Urine Color Urine Appearance Urine pH Ur Specific [place] Urine Protein Urine Glucose (UA) Urine Ketones Urine Blood Urine Nitrite Urine Bilirubin Urine Urobilinogen Ur Leukocyte Esterase Urine WBC (Auto) Squamous Epi Cells Auto Urine Mucus (Auto) Urine Ascorbic Acid 10/03/19 10/03/19 10/03/19 08:14 08:45 08:45 WBC RBC Hgb Hct MCV MCH MCHC RDW Plt Count Lymph % (Auto) [place] % (Auto) Eos % (Auto) Baso % (Auto) Absolute Neuts (auto) Absolute Lymphs (auto) Absolute Monos (auto) Absolute Eos (auto) Absolute Basos (auto) Seg Neutrophils % PT 12.5 INR 0.93 APTT 31.1 Sodium Potassium Chloride Carbon Dioxide Anion Gap BUN Creatinine Est GFR ( Amer) Est GFR (MDRD) Non-Af Glucose Calcium Total Bilirubin Direct Bilirubin Neonat Total Bilirubin Neonat Direct Bilirubin Neonat Indirect Bili AST ALT Alkaline Phosphatase Creatine Kinase CK-MB (CK-2) 1.69 Troponin I < 0.012 Total Protein Albumin Urine Color STRAW Urine Appearance CLEAR Urine pH 6.0 Ur Specific [place] 1.006 Urine Protein NEGATIVE Urine Glucose (UA) NEGATIVE Urine Ketones NEGATIVE Urine Blood NEGATIVE Urine Nitrite NEGATIVE Urine Bilirubin NEGATIVE Urine Urobilinogen NEGATIVE Ur Leukocyte Esterase NEGATIVE Urine WBC (Auto) 1 Squamous Epi Cells Auto 1 Urine Mucus (Auto) RARE Urine Ascorbic Acid NEGATIVE 10/03/19 12:00 WBC RBC Hgb Hct MCV MCH MCHC RDW Plt Count Lymph % (Auto) [place] % (Auto) Eos % (Auto) Baso % (Auto) Absolute Neuts (auto) Absolute Lymphs (auto) Absolute Monos (auto) Absolute Eos (auto) Absolute Basos (auto) Seg Neutrophils % PT INR APTT Sodium Potassium Chloride Carbon Dioxide Anion Gap BUN Creatinine Est GFR ( Amer) Est GFR (MDRD) Non-Af Glucose Calcium Total Bilirubin Direct Bilirubin Neonat Total Bilirubin Neonat Direct Bilirubin Neonat Indirect Bili AST ALT Alkaline Phosphatase Creatine Kinase CK-MB (CK-2) Troponin I < 0.012 Total Protein Albumin Urine Color Urine Appearance Urine pH Ur Specific [place] Urine Protein Urine Glucose (UA) Urine Ketones Urine Blood Urine Nitrite Urine Bilirubin Urine Urobilinogen Ur Leukocyte Esterase Urine WBC (Auto) Squamous Epi Cells Auto Urine Mucus (Auto) Urine Ascorbic Acid Chest X-Ray 10/03/19 00:00 IMPRESSION: NO ACUTE RADIOGRAPHIC FINDING IN THE CHEST. Head CT 10/03/19 09:33 IMPRESSION: NORMAL BRAIN CT WITHOUT CONTRAST. EVIDENCE OF ACUTE STROKE: NO. Her chest pain had been going on for greater than 2 days. She has no focal neurological deficits at this time. She reports all of her symptoms have improved and she feels much better and wants to be discharged home. I encouraged her to please follow-up with a primary care provider and return to the emergency department with any new or worsening symptoms. - Vital Signs Vital signs: Temp Pulse Resp BP Pulse Ox 98.7 F 98 16 148/60 H 99 10/03/19 13:08 10/03/19 09:33 10/03/19 13:01 10/03/19 13:01 10/03/19 13:01 - Laboratory Result Diagrams: 10/03/19 08:14 10/03/19 08:14 Laboratory results interpreted by me: 10/03/19 10/03/19 10/03/19 08:14 08:14 08:14 RDW 14.3 H BUN 21 H Glucose 116 H Creatine Kinase 142 H Discharge - Discharge Clinical Impression: Shortness of breath, Anxiety Condition: Stable Disposition: HOME, SELF-CARE Additional Instructions: Your work-up in the emergency department today was unremarkable. Please call Dr. Chaudhry's office Sunday for follow-up. Please return to the emergency department immediately with any new or worsening symptoms.
--- NOTE | 2019-10-03 21:56 | EKG REPORT ---
SEVERITY:- NORMAL ECG - SINUS RHYTHM : Confirmed by: Stevan Garay MD 03-Oct-2019 21:56:30
--- NOTE | 2019-10-05 20:58 | EKG REPORT ---
SEVERITY:- OTHERWISE NORMAL ECG - SINUS TACHYCARDIA : Confirmed by: Stevan Garay MD 05-Oct-2019 20:58:14
== END 2019-10-03 13:40 | disposition home or self-care (01) ==
LOC: ER 07:39
DX: R06.02 Shortness of breath (principal); F41.9 Anxiety disorder, unspecified; R07.9 Chest pain, unspecified; R20.0 Anesthesia of skin; M79.601 Pain in right arm; R53.1 Weakness; Z79.01 Long term (current) use of anticoagulants; Z86.718 Personal history of other venous thrombosis and embolism; I10 Essential (primary) hypertension; J45.909 Unspecified asthma, uncomplicated
CPT/HCPCS: 36415; 70450; 71046; 80053; 81001; 82550; 82553; 84484; 85025; 85610; 85730; 93005; 93010; 99284

== ENCOUNTER → 2020-06-03 | Outpatient (CLI) | payer MEDICAID ==
--- NOTE | 2020-06-03 13:31 | WOMENS IMAGING REPORT ---
EXAM DESCRIPTION: BONE DENSITY HIP/SPINE IMAGES COMPLETED DATE/TIME: 06/03/2020 1:19 pm REASON FOR STUDY: Z78.0 ASYMPTOMATIC MENOPAUSAL STATE Z78.0 ASYMPTOMATIC MENOPAUSAL STATE COMPARISON: None. TECHNIQUE: Dual-Energy X-ray Absorptiometry (DEXA) of the AP Spine and Hip. LIMITATIONS: None. FINDINGS: LUMBAR SPINE: The bone mineral density (BMD) measured from L1-L4 in the AP projection correlates with a T-score of -1.3, which is osteopenia as defined by the World Health Organization. BMD Change vs Baseline: N/A HIP: The bone mineral density (BMD) measured in the left hip correlates with a T-score of -0.4, which is n ormal as defined by the World Health Organization. BMD Change vs Baseline: N/A 10 year Fracture Risk Assessment: Major Osteoporotic Fracture: 3.2%. Hip Fracture: 0.1%. IMPRESSION: 1. LUMBAR SPINE WHO CLASSIFICATION: OSTEOPENIA. 2. HIP WHO CLASSIFICATION: NORMAL. OVERALL ASSESSMENT: WHO CLASSIFICATION: OSTEOPENIA. COMMENT: The World Health Organization defines low BMD as follows: T-score: Normal: At or above -1.0 Osteopenia: Between -1.0 and -2.5 Osteoporosis: At or below -2.5 without fractures Established osteoporosis: At or below -2.5 with fractures In general, you may wish to consider: Diagnosis Treatment Follow-up DEXA Normal BMD Prevention 2-3 years Osteopenia Prevention/Therapy 1-2 years Osteoporosis Therapy Yearly TECHNICAL DOCUMENTATION: JOB ID: [id number] [employer]- All Rights Reserved Reading location - IP/workstation name: [email or web address]
== END ==
LOC: WI 13:00
PROVIDERS: ATTEND Internal Medicine
DX: Z78.0 Asymptomatic menopausal state (principal)
CPT/HCPCS: 77080

== ENCOUNTER → 2020-07-09 | Outpatient (CLI) | payer MEDICAID ==
[2020-07-09 09:11] LABS: ABSOLUTE BASOPHILS # (AUTO) 0.1 10^3/uL (0.0-0.2); ABSOLUTE EOSINOPHILS # (AUTO) 0.3 10^3/uL (0.0-0.6); ABSOLUTE LYMPHOCYTES (AUTO) 2.3 10^3/uL (0.5-4.7); ABSOLUTE MONOCYTES (AUTO) 0.4 10^3/uL (0.1-1.4); BASOPHILS % (AUTO) 0.9 % (0-2); EOSINOPHILS % (AUTO) 3.5 % (0-6); HEMATOCRIT 37.4 % (36.0-47.0); LYMPHOCYTES % (AUTO) 28.7 % (13-45); MEAN CORPUSCULAR HEMOGLOBIN 28.9 pg (27.0-33.4); MEAN CORPUSCULAR HGB CONC 34.8 g/dL (32.0-36.0); MEAN CORPUSCULAR VOLUME 83 fl (80-97); MONOCYTES % (AUTO) 4.7 % (3-13); PLATELET COUNT 369 10^3/uL (150-450); RED BLOOD COUNT 4.51 10^6/uL (3.72-5.28); RED CELL DISTRIBUTION WIDTH 14.5 % (11.5-14.0); SEGMENTED NEUTROPHILS % (AUTO) 62.2 % (42-78); TOTAL CELLS COUNTED % (AUTO) 100 %; WHITE BLOOD COUNT 8.1 10^3/uL (4.0-10.5)
[2020-07-09 09:32] LABS: ANION GAP 9 (5-19); BLOOD UREA NITROGEN 18 mg/dL (7-20); CALCIUM 9.5 mg/dL (8.4-10.2); CARBON DIOXIDE 29 mmol/L (22-30); CHLORIDE 101 mmol/L (98-107); GLUCOSE 111 mg/dL (75-110); LITHIUM 0.4 mEq/L (0.6-1.2); POTASSIUM 4.5 mmol/L (3.6-5.0)
[2020-07-09 09:46] LABS: FREE T4 (FREE THYROXINE) 1.06 ng/dL (0.78-2.19)
[2020-07-09 10:00] LABS: THYROID STIMULATING HORMONE 0.77 uIU/mL (0.47-4.68)
== END ==
LOC: OD 08:34
PROVIDERS: ATTEND Psychiatry & Neurology Psychiatry
DX: F31.31 Bipolar disorder, current episode depressed, mild (principal); Z79.899 Other long term (current) drug therapy
CPT/HCPCS: 36415; 80048; 80178; 84439; 84443; 85025